=== PATIENT | female | born 1955 | race Two or more races ===

== ENCOUNTER 2018-09-13 21:50 | Emergency (ER) | payer SELFPAY ==
[~2018-09-13] VITALS: Ht 152.4 cm; Wt 54.4 kg
[2018-09-13] MEDS ORDERED: GABAPENTIN300 MG ORAL (22:02)
[2018-09-13] MEDS ORDERED: METFORMIN HCL500 M1 ORAL (22:02)
--- NOTE | 2018-09-13 22:03 | NUR ---
ED Nurse Note: Pt ambulated to ED from home with famiy, c/o 10/10 Headache pain and palpatations x 3 days. Pt is A&Ox4, Hx DM.
[2018-09-13 22:04] VITALS: BP 154/76
--- NOTE | 2018-09-13 22:10 | Emergency Room Report ---
History of Present Illness General Chief Complaint: Palpitations Source: Patient, Family Member Present Illness HPI This is a 63-year-old female with history of hypertension. She presents with chief complaint of left facial pain and palpitation. About 4 5 days ago she was diagnosed with left facial shingles. She was seen at [facility]. She was prescribed Wilkinson and gabapentin because she has postherpetic neuropathy. The rash is improving but she still get these lancing pain to her face. Now she getting more more palpitation episodes when the pain comes on. No shortness of breath also some chest tightness when the pain comes on. No nausea no vomiting. No exertional component. No diaphoresis. Allergies: Coded Allergies: No Known Allergies (Unverified , 09/13/18) Patient History Past Medical History: see triage record, old chart reviewed, DM Past Surgical History: none Pertinent Family History: none Social History: Denies: smoking Now: No Immunizations: other Reviewed Nursing Documentation: PMH: Agreed; PSxH: Agreed Nursing Documentation-PMH Past Medical History: No History, Except For Hx Diabetes: Yes Review of Systems Eye: Denies: eye pain, blurred vision ENT: Denies: ear pain, nose congestion, throat swelling Respiratory: Denies: cough, shortness of breath Cardiovascular: Reports: palpitations; Denies: chest pain Gastrointestinal: Denies: abdominal pain, diarrhea, nausea, vomiting Musculoskeletal: Denies: back pain, joint pain Skin: Denies: rash Neurological: Denies: headache, numbness Endocrine: Denies: increased thirst, increased urine Hematologic/Lymphatic: Denies: easy bruising All Other Systems: negative except mentioned in HPI Physical Exam Vital Signs Date Time Temp Pulse Resp B/P (MAP) Pulse Ox O2 Delivery O2 Flow Rate FiO2 09/13/18 21:58 99.0 106 21 154/76 (102) 100 Room Air Vitals with high blood pressure Sp02 EP Interpretation: reviewed, normal General Appearance: well appearing, no apparent distress, alert Head: normocephalic, atraumatic Eyes: bilateral eye PERRL, bilateral eye EOMI ENT: hearing grossly normal, normal pharynx, other - Skin discoloration from shingle on left side Neck: full range of motion, supple, no meningismus Respiratory: chest non-tender, lungs clear, normal breath sounds Cardiovascular #1: regular rate, rhythm, no murmur Gastrointestinal: normal bowel sounds, non tender, no mass, no organomegaly, no bruit, non-distended Musculoskeletal: back normal, gait/station normal, normal range of motion Psychiatric: anxious Medical Decision Making Diagnostic Impression: Primary Impression: Post herpetic neuralgia Additional Impressions: Palpitations Hyperglycemia due to type 2 diabetes mellitus ER Course Patient presents with palpitation and postherpetic neuralgia. She had a pain attack and was anxious and said her heartbeat was beating fast. Better after morphine. No evidence of ACS, PE, dissection to name a few. Will discharge home. She is currently taking Neurontin already. Will write for opiates. EKG Diagnostic Results Rate: tachycardiac Rhythm: NSR ST Segments: no acute changes Rhythm Strip Diag. Results EP Interpretation: yes Rate: 100 Rhythm: NSR, no PVC's, no ectopy Chest X-Ray Diagnostic Results Chest X-Ray Diagnostic Results : Chest X-Ray Ordered: Yes # of Views/Limited/Complete: 1 View Indication: Chest Pain EP Interpretation: Yes Interpretation: no consolidation, no effusion, no pneumothorax Impression: No acute disease Electronically Signed by: Keo Ames MD Last Vital Signs Date Time Temp Pulse Resp B/P (MAP) Pulse Ox O2 Delivery O2 Flow Rate FiO2 09/13/18 22:04 99.0 106 21 154/76 100 Room Air Status: improved Disposition: HOME, SELF-CARE Condition: Stable Scripts Hydrocodone/Acetaminophen 5-325* (HYDROCODONE/ACETAMINOPHEN 5-325*) 1 Each Tablet 1 TAB ORAL Q6H PRN for For Pain, #30 TAB 0 Refills Prov: Keo Ames MD 09/13/18 Patient Instructions: Palpitations Additional Instructions: Follow-up with your doctor in 7 days. Continue with Neurontin. Return if symptoms worsen. Keo Ames MD Sep 13, 2018 22:10
[2018-09-13] MEDS ORDERED: LORazepam Inj 2mg/ml 1ml IV ONE (22:15)
[2018-09-13 22:25] LABS: BASOPHILS % (AUTO) 1.1 % (0.0-2.0); EOSINOPHILS % (AUTO) 0.1 % (0.0-3.0); HEMATOCRIT 46.5 % (37.0-47.0); HEMOGLOBIN 15.6 G/DL (12.0-16.0); LYMPHOCYTES % (AUTO) 15.3 % (20.0-45.0); MEAN CORPUSCULAR VOLUME 81 FL (80-99); MONOCYTES % (AUTO) 6.6 % (1.0-10.0); NEUTROPHILS % (AUTO) 76.9 % (45.0-75.0); PLATELET COUNT 455 K/UL (150-450); RED BLOOD COUNT 5.76 M/UL (4.20-5.40); RED CELL DISTRIBUTION WIDTH 13.3 % (11.6-14.8); WHITE BLOOD COUNT 10.8 K/UL (4.8-10.8)
[2018-09-13 22:34] LABS: ANION GAP 11 mmol/L (5-15); BLOOD UREA NITROGEN 12 mg/dL (7-18); CALCIUM 9.4 MG/DL (8.5-10.1); CARBON DIOXIDE 25 MMOL/L (21-32); CHLORIDE 99 MMOL/L (98-107); CREATININE 0.9 MG/DL (0.55-1.30); POTASSIUM 4.1 MMOL/L (3.5-5.1); SODIUM 135 MMOL/L (136-145)
[2018-09-13] MEDS ORDERED: Insulin Human Regular 100units/ml 3ml IV ONE (22:45)
[2018-09-13] MEDS ORDERED: Morphine Sulfate 4mg/ml Inj (IV USE ONLY) IVP ONE (22:45)
[2018-09-13 22:47] LABS: ALANINE AMINOTRANSFERASE 7 U/L (12-78); ALBUMIN 3.9 G/DL (3.4-5.0); ALKALINE PHOSPHATASE 146 U/L (46-116); ASPARTATE AMINO TRANSFERASE 12 U/L (15-37); BILIRUBIN,TOTAL 0.5 MG/DL (0.2-1.0); CKMB 0.5 NG/ML (0.0-3.6); CREATINE KINASE 21 U/L (26-308)
--- NOTE | 2018-09-13 23:03 | Diagnostic Imaging Report ---
EXAM: XR Chest, 1 View CLINICAL HISTORY: CP TECHNIQUE: Frontal view of the chest. COMPARISON: No relevant prior studies available. FINDINGS: Lungs: Unremarkable. No consolidation. Pleural space: Unremarkable. No pneumothorax. Heart: Unremarkable. No cardiomegaly. Mediastinum: Unremarkable. Bones/joints: Unremarkable. IMPRESSION: Normal chest x-ray.
[2018-09-13] MEDS ORDERED: HYDROCODON-ACE1 EA15 ORAL (23:11)
--- NOTE | 2018-09-13 23:34 | NUR ---
ER DISCHARGE NOTE: Patient is cleared to be discharged per ERMD, pt is aox4, on room air, with stable vital signs. pt was given dc and prescription instructions, pt was able to verbalize understanding, pt id band and iv site removed without complications. pt is able to ambulate with steady gait. pt took all belongings. Pt accompanied by daughters, instructed to continue taking metformin daily and to follow up with PCP, verbalized understanding
[2018-09-13 23:35] VITALS: BP 136/80
== END 2018-09-13 23:35 | disposition home or self-care (01) ==
LOC: EMR 22:06
DX: B02.29 Other postherpetic nervous system involvement (principal); R00.2 Palpitations; E11.65 Type 2 diabetes mellitus with hyperglycemia; I10 Essential (primary) hypertension; R00.0 Tachycardia, unspecified
CPT/HCPCS: 36415; 71045; 80053; 82550; 82553; 84484; 85025; 93005; 96361; 96374; 96375; 99284; J1815; J2270; J2405

== ENCOUNTER 2018-09-18 14:13 | Inpatient (IN) | payer MEDICAID ==
[~2018-09-18] VITALS: Ht 154.9 cm; Wt 49.9 kg
[~2018-09-18 14:13] MED LIST: GABAPENTIN300 MG ORAL; HYDROCODON-ACE1 EA15 ORAL; METFORMIN HCL500 M1 ORAL
[2018-09-18 14:20] VITALS: BP 135/72
--- NOTE | 2018-09-18 14:20 | NUR ---
ED Nurse Note: pt walked in to ED due to headache for 3 weeks. rashes noted on left side of face. hx of shingles. pt seen by [facility] on 09/13/18 for same sx. per family member, pain meds not helping. AAO x4. respirations even and non-labored noted. breath sounds clear. on caridac monitor. will wait for the further order.
[2018-09-18 14:49] LABS: BASOPHILS % (AUTO) 0.8 % (0.0-2.0); EOSINOPHILS % (AUTO) 0.1 % (0.0-3.0); HEMOGLOBIN 16.4 G/DL (12.0-16.0); LYMPHOCYTES % (AUTO) 29.1 % (20.0-45.0); MEAN CORPUSCULAR VOLUME 81 FL (80-99); MONOCYTES % (AUTO) 6.1 % (1.0-10.0); NEUTROPHILS % (AUTO) 63.9 % (45.0-75.0); PLATELET COUNT 506 K/UL (150-450); RED BLOOD COUNT 6.08 M/UL (4.20-5.40); RED CELL DISTRIBUTION WIDTH 13.5 % (11.6-14.8); WHITE BLOOD COUNT 13.3 K/UL (4.8-10.8)
[2018-09-18 14:58] LABS: ANION GAP 13 mmol/L (5-15); BLOOD UREA NITROGEN 16 mg/dL (7-18); CARBON DIOXIDE 21 MMOL/L (21-32); CHLORIDE 100 MMOL/L (98-107); CREATININE 0.8 MG/DL (0.55-1.30); POTASSIUM 3.9 MMOL/L (3.5-5.1); SODIUM 134 MMOL/L (136-145)
[2018-09-18 15:12] LABS: ALANINE AMINOTRANSFERASE 6 U/L (12-78); ALBUMIN 3.9 G/DL (3.4-5.0); ALKALINE PHOSPHATASE 107 U/L (46-116); ASPARTATE AMINO TRANSFERASE 15 U/L (15-37); BILIRUBIN,TOTAL 0.8 MG/DL (0.2-1.0); CKMB 0.8 NG/ML (0.0-3.6); CREATINE KINASE 33 U/L (26-308)
[2018-09-18] MEDS ORDERED: Acyclovir 500 MG in D5W 110 ML IV ONE (15:15)
[2018-09-18] MEDS ORDERED: Morphine Sulfate 4mg/ml Inj (IV USE ONLY) IVP ONE ×2 (15:15→17:15)
--- NOTE | 2018-09-18 15:18 | Diagnostic Imaging Report ---
Indication: Chest pain Comparison: 09/13/2018 A single view chest radiograph was obtained. Findings: Cardiomediastinal appearance is within normal limits for age. The lungs are clear. Pulmonary vascularity is appropriate. The diaphragmatic contour is smooth and costophrenic angles are sharp. No pleural effusions are identified. The bones are unremarkable. Impression: No acute findings
[2018-09-18 15:20] VITALS: BP 110/61
--- NOTE | 2018-09-18 15:25 | Diagnostic Imaging Report ---
Indication: Headache Technique: Contiguous 5 mm thick transaxial imaging of the head obtained in a Siemens Sensation [address] scanner. Soft tissue and bone windows generated. Automatic Exposure Control was utilized. Total Dose length Product (DLP): 1481.[address] Dose Index Volume (CTDIvol): 70.38 mGy Comparison: none Findings: The size and configuration of the cortical sulci, basal cisterns, and ventricles are within normal limits for age. There is no mass effect, midline shift, or edema identified. There is no evidence of acute hemorrhage or abnormal intra-axial or extra-axial fluid collections. The bones and soft tissues are unremarkable. Impression: No mass effect, edema or acute bleed. The CT scanner at [facility] is accredited by the [employer] and the scans are performed using dose optimization techniques as appropriate to a performed exam including Automatic Exposure control.
--- NOTE | 2018-09-18 15:44 | NUR ---
ED Nurse Note: pt went to MRI by wheelchair.
[2018-09-18 16:49] VITALS: BP 119/64
--- NOTE | 2018-09-18 16:50 | NUR ---
ED Nurse Note: pt came back from MRI. c/o ammy, 12/18. RN notified Dr. Gee.
--- NOTE | 2018-09-18 17:00 | Diagnostic Imaging Report ---
Indication: Left eye pain Technique: The orbit or imaged in a 1.5 Alba magnet. Multiplanar T1 and T2 fast spin-echo with fat saturation performed. Axial T2 FLAIR, diffusion brain sequences also performed. Comparison: None Nongadolinium-enhanced MRI of the orbits performed showing normal signal with regard to the retrobulbar fat. There is good symmetry of the optic nerves which appear normal to the chiasm. The globes are unremarkable. There are no abnormal fluid collections identified. There is no evidence of retrobulbar hemorrhage or proptosis. Generalized brain sequences show no diffusion restriction, mass effect or edema. IMPRESSION: Negative nonenhanced MRI of the orbits.
--- NOTE | 2018-09-18 17:01 | Emergency Room Report ---
History of Present Illness General Chief Complaint: Headache Source: Patient, Family Member, Medical Record Present Illness HPI This patient had been previously diagnosed with herpes zoster of her face. This had initially been diagnosed 10 days ago at another hospital. She has been on acyclovir, gabapentin and norco. She was seen 5 days ago and diagnosed with postherpetic neuralgia. She has had ongoing very sharp stabbing electric- like pain in her left head, eye, and face. There has been no new symptoms since she was seen previously 5 days ago. She denies nausea or vomiting. She denies fever or chills. She has no new pain. She has no other complaints. Allergies: Coded Allergies: No Known Allergies (Unverified , 09/13/18) Patient History Past Medical History: see triage record, DM Social History: Denies: smoking, alcohol use, drug use Reviewed Nursing Documentation: PMH: Agreed; PSxH: Agreed Nursing Documentation-PMH Past Medical History: No History, Except For Hx Diabetes: Yes Review of Systems All Other Systems: negative except mentioned in HPI Physical Exam Vital Signs Date Time Temp Pulse Resp B/P (MAP) Pulse Ox O2 Delivery O2 Flow Rate FiO2 09/18/18 14:20 99.9 116 19 135/72 100 Room Air Sp02 EP Interpretation: reviewed, normal General Appearance: no apparent distress, alert, GCS 15, non-toxic Head: normocephalic, atraumatic, other - See below in skin exam Eyes: left eye other - Conjunctival erythema ENT: hearing grossly normal, normal pharynx, no angioedema, normal voice Neck: full range of motion, supple/symm/no masses Respiratory: chest non-tender, lungs clear, normal breath sounds, no respiratory distress, no retraction, no accessory muscle use, speaking full sentences Cardiovascular #1: regular rate, rhythm, no edema Gastrointestinal: normal bowel sounds, non tender, soft, non-distended, no guarding, no rebound Rectal: deferred Musculoskeletal: back normal, normal range of motion, non-tender Neurologic: alert, oriented x3, responsive, motor strength/tone normal, sensory intact, speech normal Psychiatric: judgement/insight normal, memory normal, mood/affect normal, no suicidal/homicidal ideation Skin: other - Darkened lesions on L. forehead to include L. eyelids and conjunctival erythema. No vesicles. Medical Decision Making Diagnostic Impression: Primary Impression: Post herpetic neuralgia Additional Impression: Herpes zoster ophthalmicus of left eye ER Course This patient has ongoing postherpetic neuralgia of the left forehead and findings on exam consistent with herpes zoster ophthalmicus. Her pain is out of control. The patient was given IV acyclovir. I did obtain a CT of the head given the severe head pain and an MRI of the orbit. These were all unremarkable. Laboratory work-up was also unremarkable. This patient is admitted for further pain management for uncontrolled pain and monitoring for the herpes zoster ophthalmicus of her left eye. Laboratory Tests Test 09/18/18 14:30 White Blood Count 13.3 K/UL (4.8-10.8) H Red Blood Count 6.08 M/UL (4.20-5.40) H Hemoglobin 16.4 G/DL (12.0-16.0) H Hematocrit 49.0 % (37.0-47.0) H Mean Corpuscular Volume 81 FL (80-99) Mean Corpuscular Hemoglobin 27.0 PG (27.0-31.0) Mean Corpuscular Hemoglobin Concent 33.6 G/DL (32.0-36.0) Red Cell Distribution Width 13.5 % (11.6-14.8) Platelet Count 506 K/UL (150-450) H Mean Platelet Volume 5.8 FL (6.5-10.1) L Neutrophils (%) (Auto) 63.9 % (45.0-75.0) Lymphocytes (%) (Auto) 29.1 % (20.0-45.0) Monocytes (%) (Auto) 6.1 % (1.0-10.0) Eosinophils (%) (Auto) 0.1 % (0.0-3.0) Basophils (%) (Auto) 0.8 % (0.0-2.0) Sodium Level 134 MMOL/L (136-145) L Potassium Level 3.9 MMOL/L (3.5-5.1) Chloride Level 100 MMOL/L (98-107) Carbon Dioxide Level 21 MMOL/L (21-32) Anion Gap 13 mmol/L (5-15) Blood Urea Nitrogen 16 mg/dL (7-18) Creatinine 0.8 MG/DL (0.55-1.30) Estimate Glomerular Filtration Rate > 60 mL/min (>60) Glucose Level 302 MG/DL (74-106) H Calcium Level 10.0 MG/DL (8.5-10.1) Total Bilirubin 0.8 MG/DL (0.2-1.0) Aspartate Amino Transferase (AST) 15 U/L (15-37) Alanine Aminotransferase (ALT) 6 U/L (12-78) L Alkaline Phosphatase 107 U/L (46-116) Total Creatine Kinase 33 U/L (26-308) Creatine Kinase MB 0.8 NG/ML (0.0-3.6) Creatine Kinase MB Relative Index 2.4 Troponin I 0.000 ng/mL (0.000-0.056) Total Protein 7.8 G/DL (6.4-8.2) Albumin 3.9 G/DL (3.4-5.0) Globulin 3.9 g/dL Albumin/Globulin Ratio 1.0 (1.0-2.7) EKG Diagnostic Results Rate: tachycardiac Rhythm: other - S.tachycardia ST Segments: no acute changes Rhythm Strip Diag. Results EP Interpretation: yes Rate: 100's Rhythm: no PVC's, no ectopy, other - S.tachycardia Chest X-Ray Diagnostic Results Chest X-Ray Diagnostic Results : Chest X-Ray Ordered: Yes Indication: Other EP Interpretation: Yes Interpretation: no consolidation, no effusion, no pneumothorax, no acute cardiopulmonary disease Impression: No acute disease Electronically Signed by: Naina Gee DO CT/MRI/US Diagnostic Results CT/MRI/US Diagnostic Results : Imaging Test Ordered: CT head, MRI orbits Impression CT head: No acute findings. Specifically no intracranial bleed, mass effect or edema. See official report. MRI orbits: No acute findings. See official report in the electronic medical record. Last Vital Signs Date Time Temp Pulse Resp B/P (MAP) Pulse Ox O2 Delivery O2 Flow Rate FiO2 09/18/18 16:49 98.7 107 17 119/64 99 Room Air Disposition: ADMITTED INPATIENT Condition: Stable Referrals: NOT CHOSEN IPA/,REFERRING (PCP) Naina Gee DO Sep 18, 2018 17:01
--- NOTE | 2018-09-18 18:04 | NUR ---
ED Nurse Note: RN attempted to give a report. no assigned nurse yet. will call back in 15 mins as requested.
--- NOTE | 2018-09-18 18:20 | NUR ---
ED Nurse Note: urine sample sent
[2018-09-18] MEDS ORDERED: Morphine Sulfate 2mg/ml Inj(IV/IM USE ONLY) IVP PRN ×2 (18:30→22:30)
[2018-09-18] MEDS ORDERED: LORazepam Inj 2mg/ml 1ml IV PRN (18:30)
--- NOTE | 2018-09-18 18:30 | NUR ---
ED Nurse Note: MS nurse wants cover for BS 302. RN notified Dr. Gee. will wait for the order.
[2018-09-18 18:35] VITALS: BP 132/78
--- NOTE | 2018-09-18 18:42 | NUR ---
ED Nurse Note: Reports given to FLAKITO Pierce.
[2018-09-18] MEDS ORDERED: metFORMIN 500mg tab ORAL ONE (18:45)
--- NOTE | 2018-09-18 18:53 | NUR ---
NURSE NOTES: Received pt from ACCOUNTING MACHINE MECHANIC ARSENIO. Pt is alert and orient x4. pt is in RA, no SOB or acute respiratory distress noted. pt has intact iv access RAC 20G SL. family member are with pt in the room. Dr DOOLEY is aware about admission and put admission orders.V/S stable. all needs attended, bed is locked and is in the lowest position. call light within easy reach. will continue to monitor. will give report to the next shift to do admission process and skin check. will continue to monitor.
--- NOTE | 2018-09-18 19:23 | NUR ---
HAND-OFF: Report given to REUBEN FRAGA .
--- NOTE | 2018-09-18 19:30 | NUR ---
NURSE NOTES: Received report from FLAKITO Pierce. Patient in bed, awake and alert x4. Patient is in room air with no signs of respiratory distress. Family at bedside. IV intact. Bed in lowest position with call light in reach. Will continue to monitor.
[2018-09-18 20:00] VITALS: BP 131/74
[2018-09-18] MEDS: Heparin 5000 units/ml inj SUBQ SCH (20:48)
[2018-09-18] MEDS: NovoLOG Insulin Flexpen SUBQ SCH (20:52)
[2018-09-18] MEDS ORDERED: Zolpidem 5mg tab ORAL PRN (21:00)
[2018-09-18 21:17] LABS: APPEARANCE,URINE CLEAR; BILIRUBIN, URINE NEGATIVE (NEGATIVE); COLOR,URINE PALE YELLOW; GLUCOSE, URINE (UA) 4+ (NEGATIVE); KETONES,URINE 3+ (NEGATIVE); LEUKOCYTE ESTERASE ,URINE NEGATIVE (NEGATIVE); NITRITE,URINE NEGATIVE (NEGATIVE); PH,URINE 7 (4.5-8.0); PROTEIN,URINE NEGATIVE (NEGATIVE); UROBILINOGEN,URINE NORMAL MG/DL (0.0-1.0)
--- NOTE | 2018-09-18 23:00 | NUR ---
NURSE NOTES: Offered to apply dressing over the left eye area. Explained risks and benefits, patient understands but refuses.
[2018-09-19] VITALS: BP 131/74
[2018-09-19 04:00] VITALS: BP 121/72
[2018-09-19] MEDS: NovoLOG Insulin Flexpen SUBQ SCH ×4 (06:29→21:17)
[2018-09-19 06:32] LABS: BASOPHILS % (AUTO) 0.9 % (0.0-2.0); EOSINOPHILS % (AUTO) 0.2 % (0.0-3.0); HEMATOCRIT 42.6 % (37.0-47.0); HEMOGLOBIN 14.2 G/DL (12.0-16.0); LYMPHOCYTES % (AUTO) 21.8 % (20.0-45.0); MEAN CORPUSCULAR VOLUME 82 FL (80-99); MONOCYTES % (AUTO) 8.8 % (1.0-10.0); NEUTROPHILS % (AUTO) 68.2 % (45.0-75.0); PLATELET COUNT 383 K/UL (150-450); RED BLOOD COUNT 5.21 M/UL (4.20-5.40); RED CELL DISTRIBUTION WIDTH 14.2 % (11.6-14.8); WHITE BLOOD COUNT 8.7 K/UL (4.8-10.8)
[2018-09-19 06:51] LABS: ALANINE AMINOTRANSFERASE < 6 U/L (12-78); ALBUMIN 3.4 G/DL (3.4-5.0); ALBUMIN/GLOBULIN RATIO 1.2 (1.0-2.7); ALKALINE PHOSPHATASE 86 U/L (46-116); ANION GAP 8 mmol/L (5-15); ASPARTATE AMINO TRANSFERASE 15 U/L (15-37); BILIRUBIN,TOTAL 0.4 MG/DL (0.2-1.0); BLOOD UREA NITROGEN 15 mg/dL (7-18); CALCIUM 8.6 MG/DL (8.5-10.1); CARBON DIOXIDE 26 MMOL/L (21-32); CHLORIDE 102 MMOL/L (98-107); CHOLESTEROL 125 MG/DL (< 200); CREATININE 0.7 MG/DL (0.55-1.30); HDL CHOLESTEROL 43 MG/DL (40-60); POTASSIUM 3.5 MMOL/L (3.5-5.1); SODIUM 136 MMOL/L (136-145); TRIGLYCERIDES 217 MG/DL (30-150)
--- NOTE | 2018-09-19 07:31 | NUR ---
HAND-OFF: Report given to FLAKTIO Mansfield.
--- NOTE | 2018-09-19 07:44 | NUR ---
NURSE NOTES: Patient received in stable condition, breathing unlabored on room air. Daughter by the bedside. Patient complains of pain despite having analgesic 2 hours ago. MD made aware, awaiting response for possible increased dose. IV site on right arm patent and intact. Bed locked in lowest position, call light placed within reach. Will continue to monitor.
[2018-09-19 08:00] VITALS: BP 130/77
[2018-09-19] MEDS: Heparin 5000 units/ml inj SUBQ SCH ×2 (08:24→20:54)
[2018-09-19 12:00] VITALS: BP 131/78
--- NOTE | 2018-09-19 12:32 | Consultation ---
History of Present Illness General Date patient seen: Sep 19, 2018 Chief Complaint: Headache Present Illness HPI 63 year old female with hx of DM with recent herpes zoster of her face, on acyclovir, presented to ER with severe ongoing very sharp stabbing electric- like pain in her left head, eye, and face. . She denies nausea or vomiting. She denies fever or chills. She has no new pain. she is admitted for pain management. Allergies: Coded Allergies: No Known Allergies (Unverified , 09/13/18) Medication History Scheduled Gabapentin* (Gabapentin*), 300 MG ORAL THREE TIMES A DAY, (Reported) Metformin Hcl* (Metformin Hcl*), 500 MG ORAL TWICE A DAY, (Reported) Scheduled PRN Hydrocodone/Acetaminophen 5-325* (Hydrocodone/Acetaminophen 5-325*), 1 TAB ORAL Q6H PRN for For Pain Patient History Healthcare decision maker Resuscitation status Advanced Directive on File Past Medical/Surgical History Past Medical/Surgical History: (1) Herpes zoster ophthalmicus of left eye Review of Systems All Other Systems: negative except mentioned in HPI Physical Exam General Appearance: WD/WN Lines, tubes and drains: peripheral, central line HEENT: normocephalic, atraumatic Neck: non-tender, normal alignment, limited range of motion Respiratory/Chest: chest wall non-tender, lungs clear, normal breath sounds Abdomen: normal bowel sounds, non tender Genitourinary/Rectal: normal genital exam Extremities: normal range of motion Neurologic: tire classifier II-XII grossly normal Last 24 Hour Vital Signs Date Time Temp Pulse Resp B/P (MAP) Pulse Ox O2 Delivery O2 Flow Rate FiO2 09/19/18 12:00 97.5 103 18 131/78 (95) 97 09/19/18 09:00 Room Air 09/19/18 08:00 98.5 111 18 130/77 (94) 98 09/19/18 04:00 98.0 115 18 121/72 (88) 98 09/19/18 00:00 97.5 92 18 131/74 (93) 98 09/18/18 20:00 97.8 103 19 131/74 (93) 98 09/18/18 19:30 Room Air 09/18/18 18:43 98.1 80 18 132/78 100 Room Air 09/18/18 18:35 98.1 80 18 132/78 100 Room Air 09/18/18 16:49 98.7 107 17 119/64 99 Room Air 09/18/18 15:20 97 16 110/61 99 Room Air 09/18/18 14:20 99.9 116 19 135/72 (93) 100 Room Air 09/18/18 14:20 99.9 116 19 135/72 100 Room Air Intake and Output 09/18/18 09/19/18 19:00 07:00 Intake Total 110 ml Balance 110 ml Intake Oral 0 ml IV Total 110 ml # Voids 2 Laboratory Tests Test 09/18/18 14:30 09/18/18 18:18 09/19/18 05:55 White Blood Count 13.3 K/UL (4.8-10.8) H 8.7 K/UL (4.8-10.8) Red Blood Count 6.08 M/UL (4.20-5.40) H 5.21 M/UL (4.20-5.40) Hemoglobin 16.4 G/DL (12.0-16.0) H 14.2 G/DL (12.0-16.0) Hematocrit 49.0 % (37.0-47.0) H 42.6 % (37.0-47.0) Mean Corpuscular Volume 81 FL (80-99) 82 FL (80-99) Mean Corpuscular Hemoglobin 27.0 PG (27.0-31.0) 27.2 PG (27.0-31.0) Mean Corpuscular Hemoglobin Concent 33.6 G/DL (32.0-36.0) 33.3 G/DL (32.0-36.0) Red Cell Distribution Width 13.5 % (11.6-14.8) 14.2 % (11.6-14.8) Platelet Count 506 K/UL (150-450) H 383 K/UL (150-450) Mean Platelet Volume 5.8 FL (6.5-10.1) L 5.7 FL (6.5-10.1) L Neutrophils (%) (Auto) 63.9 % (45.0-75.0) 68.2 % (45.0-75.0) Lymphocytes (%) (Auto) 29.1 % (20.0-45.0) 21.8 % (20.0-45.0) Monocytes (%) (Auto) 6.1 % (1.0-10.0) 8.8 % (1.0-10.0) Eosinophils (%) (Auto) 0.1 % (0.0-3.0) 0.2 % (0.0-3.0) Basophils (%) (Auto) 0.8 % (0.0-2.0) 0.9 % (0.0-2.0) Sodium Level 134 MMOL/L (136-145) L 136 MMOL/L (136-145) Potassium Level 3.9 MMOL/L (3.5-5.1) 3.5 MMOL/L (3.5-5.1) Chloride Level 100 MMOL/L (98-107) 102 MMOL/L (98-107) Carbon Dioxide Level 21 MMOL/L (21-32) 26 MMOL/L (21-32) Anion Gap 13 mmol/L (5-15) 8 mmol/L (5-15) Blood Urea Nitrogen 16 mg/dL (7-18) 15 mg/dL (7-18) Creatinine 0.8 MG/DL (0.55-1.30) 0.7 MG/DL (0.55-1.30) Estimat Glomerular Filtration Rate > 60 mL/min (>60) > 60 mL/min (>60) Glucose Level 302 MG/DL (74-106) H 312 MG/DL (74-106) H Calcium Level 10.0 MG/DL (8.5-10.1) 8.6 MG/DL (8.5-10.1) Total Bilirubin 0.8 MG/DL (0.2-1.0) 0.4 MG/DL (0.2-1.0) Aspartate Amino Transf (AST/SGOT) 15 U/L (15-37) 15 U/L (15-37) Alanine Aminotransferase (ALT/SGPT) 6 U/L (12-78) L < 6 U/L (12-78) L Alkaline Phosphatase 107 U/L (46-116) 86 U/L (46-116) Total Creatine Kinase 33 U/L (26-308) Creatine Kinase MB 0.8 NG/ML (0.0-3.6) Creatine Kinase MB Relative Index 2.4 Troponin I 0.000 ng/mL (0.000-0.056) Total Protein 7.8 G/DL (6.4-8.2) 6.3 G/DL (6.4-8.2) L Albumin 3.9 G/DL (3.4-5.0) 3.4 G/DL (3.4-5.0) Globulin 3.9 g/dL 2.9 g/dL Albumin/Globulin Ratio 1.0 (1.0-2.7) 1.2 (1.0-2.7) Urine Color Pale yellow Urine Appearance Clear Urine pH 7 (4.5-8.0) Urine Specific [place] 1.005 (1.005-1.035) Urine Protein Negative (NEGATIVE) Urine Glucose (UA) 4+ (NEGATIVE) H Urine Ketones 3+ (NEGATIVE) H Urine Blood Negative (NEGATIVE) Urine Nitrite Negative (NEGATIVE) Urine Bilirubin Negative (NEGATIVE) Urine Urobilinogen Normal MG/DL (0.0-1.0) Urine Leukocyte Esterase Negative (NEGATIVE) Urine Opiates Screen Positive (NEGATIVE) H Urine Barbiturates Screen Negative (NEGATIVE) Phencyclidine (PCP) Screen Negative (NEGATIVE) Urine Amphetamines Screen Negative (NEGATIVE) Urine Benzodiazepines Screen Negative (NEGATIVE) Urine Cocaine Screen Negative (NEGATIVE) Urine Marijuana (THC) Screen Negative (NEGATIVE) Triglycerides Level 217 MG/DL (30-150) H Cholesterol Level 125 MG/DL (< 200) LDL Cholesterol 42 mg/dL (<100) HDL Cholesterol 43 MG/DL (40-60) Cholesterol/HDL Ratio 2.9 (3.3-4.4) L Height (Feet): 5 Height (Inches): 1.00 Weight (Pounds): 110 Medications Current Medications Medications (Trade) Dose Ordered Sig/Maryanne Route PRN Reason Start Time Stop Time Status Last Admin Dose Admin Acetaminophen (Tylenol) 650 mg Q4H PRN ORAL T>100.5 09/18/18 18:30 10/18/18 18:29 Acetaminophen/ Hydrocodone Bitart ([place] 5/325) 1 tab Q6H PRN ORAL Moderate Pain (Pain Scale 4-6) 09/18/18 18:30 09/25/18 18:29 Dextrose (Dextrose 50%) 25 ml Q30M PRN IV Hypoglycemia 09/18/18 18:30 10/18/18 18:29 Dextrose (Dextrose 50%) 50 ml Q30M PRN IV Hypoglycemia 09/18/18 18:30 10/18/18 18:29 Gabapentin (Neurontin) 300 mg Q8HR ORAL 09/18/18 22:00 10/18/18 21:59 09/19/18 06:23 Heparin Sodium (Porcine) (Heparin 5000 units/ml) 5,000 units EVERY 12 HOURS SUBQ 09/18/18 21:00 10/18/18 20:59 09/19/18 08:24 Hydromorphone HCl (Dilaudid) 2 mg Q4H PRN IVP Severe Breakthru Pain (>7) 09/19/18 08:15 09/26/18 08:14 09/19/18 08:18 Insulin Aspart (NovoLOG) BEFORE MEALS AND HS SUBQ 09/18/18 21:00 10/18/18 20:59 09/19/18 11:35 Lorazepam (Ativan 2mg/ml 1ml) 0.5 mg Q4H PRN IV For Anxiety 09/18/18 18:30 09/25/18 18:29 09/19/18 09:24 Ondansetron HCl (Zofran) 4 mg Q6H PRN IVP Nausea & Vomiting 09/18/18 18:30 10/18/18 18:29 09/19/18 06:24 Polyethylene Glycol (Miralax) 17 gm HSPRN PRN ORAL Constipation 09/18/18 21:00 10/18/18 20:59 Zolpidem Tartrate (Ambien) 5 mg HSPRN PRN ORAL Insomnia 09/18/18 21:00 09/25/18 20:59 Assessment/Plan Problem List: (1) Post herpetic neuralgia ICD Codes: B02.29 - Other postherpetic nervous system involvement SNOMED: 0364385 (2) Herpes zoster ophthalmicus of left eye ICD Codes: B02.30 - Zoster ocular disease, unspecified SNOMED: 10566647 Assessment/Plan: pain management add methadone for neuropathic pain Jabier Adams MD Sep 19, 2018 12:32
--- NOTE | 2018-09-19 14:33 | NUR ---
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 HERPES ZOSTER OPHTALMICUS OF LEFT EYE VS: BP 135/72, P 116, T 99.9, RR 19, SpO2 100 WBC 13.3, RBC 6.08, H&H 16.4/49.0, Na 134, ALT 6, UR KETONES 3+ IS:METFORMIN 500mg NS x1L IV MORPHINE SULFATE 4mg IVP ACYCLOVIR 110ml IV ADMITTED TO MED/SURG DCP: RETURN HOME
--- NOTE | 2018-09-19 15:55 | Cardiology Report ---
APPROVED REPORT EKG Measurement Heart [id number] Sinus tachycardia Otherwise normal ECG
[2018-09-19 16:00] VITALS: BP 142/86
--- NOTE | 2018-09-19 17:25 | History & Physical ---
History and Physical History & Physicial Chau Godfrey MD Sep 19, 2018 17:25
--- NOTE | 2018-09-19 19:00 | History and Physical Report ---
DATE OF ADMISSION: 09/18/2018 CHIEF COMPLAINT: Left-sided facial pain. HISTORY OF PRESENT ILLNESS: This is a 63-year-old female with past medical history significant for diabetes type 2 with history of recent herpes zoster of the left-sided face, on acyclovir, completed has been presented to the emergency room complaining about sharp stabbing electrical pain on the left side of her face. The patient denies any nausea or vomiting. Denies any fever or chills. Denies any loss of consciousness. Denies any fall or head trauma. Denies any seizure activity. The patient has been having left ophthalmic dermatome herpes zoster infection. It has been going on for past 4 weeks and still complaining about pain progressively worsening. Subsequently after initial evaluation in the emergency room, the patient was admitted to the hospital with severe left-sided facial pain, most likely secondary to the postherpetic neuralgia. PAST MEDICAL HISTORY/PAST SURGICAL HISTORY: As above, history of diabetes type 2 with history of left herpes zoster ophthalmicus. MEDICATIONS AT HOME: She is on gabapentin and metformin. ALLERGIES: No known drug allergies. SOCIAL HISTORY: No smoking, alcohol, or drugs. FAMILY HISTORY: Noncontributory. REVIEW OF SYSTEMS: Mostly as above. PHYSICAL EXAMINATION: VITAL SIGNS: On admission temperature 99, pulse of 116, respirations 19, blood pressure 135/72. GENERAL: The patient awake, responsive, not in acute distress. HEAD AND NECK: Pupils are equal and reactive to light. Extraocular movements intact. Left-sided facial area has vesicular dry rashes with the scab has been removed, not extended to the tip of the nose. Left eye, there is no erythema on the cornea. Neck was supple. No JVD. LUNGS: Good air entry. No wheeze or rales. HEART: S1, S2. Regular rhythm. No gallops. ABDOMEN: Soft, nondistended, nontender. Positive bowel sounds. EXTREMITIES: No cyanosis, clubbing, edema. NEUROLOGIC: Cranial nerves II through XII grossly intact. Motor is 5/5 in all extremities. Gait is intact. RECTAL/GENITOURINARY: Refused and deferred. PSYCHIATRIC: Mood and affect is intact. LABORATORY DATA: On admission from the ER, WBC of 13, hemoglobin 16, hematocrit 49, platelets 506. Sodium 134, potassium 3.9, chloride 100, bicarb 21, BUN 16, creatinine 0.8, glucose is 302. Troponin 0.00. Urine drug screen positive for opioids, otherwise negative. Urinalysis, +4 glucose, +3 ketones, no nitrites, no leukocytes. The patient had a CT of the head. No mass effect, edema, or acute bleeding. MRI of the facial area negative for nonenhanced MRI of the orbital. Chest x-ray, no acute findings. ASSESSMENT: 1. Uncontrolled diabetes, most likely secondary to the recent infection. 2. Postherpetic neuralgia. 3. Herpes zoster ophthalmicus of the left eye. PLAN: We will continue on the pain medication including methadone. Follow up Dr. Adams's recommendation. Resume home medication. Accu-Chek with sliding scale. Code status is Full Code. DVT prophylaxis, heparin subcutaneous. Chau Godfrey M.D. DR: FELIZ JOB#: [id number] CC:
--- NOTE | 2018-09-19 19:35 | NUR ---
HAND-OFF: Report given to Esperanza FRAGA.
[2018-09-19 20:00] VITALS: BP 134/72
--- NOTE | 2018-09-19 20:00 | NUR ---
NURSE NOTES: PATIENT IN BED. ADM DX OF HERPES ZOSTER ON L EYE. ON RA, NO SOB, NO ACUTE DISTRESS. IV INTACT, PATENT ON RAC, SALINE LOCK. DARKEN LESION ON L EYE AND L FOREHEAD. BED IN LOWEST POSITION, LOCKED, ALARMS ON. CALL LIGHT IN REACH. FAMILY BY BEDSIDE.
[2018-09-20] VITALS: BP 153/84
--- NOTE | 2018-09-20 03:08 | NUR ---
HAND-OFF: Report given to Toney FRAGA.
--- NOTE | 2018-09-20 03:15 | NUR ---
NURSE NOTES: Patient received to continue care. Pt resting in bed. On room air. IV on R AC intact and asymptomatic. Dark lesion on L eye and L forehead. No blister noted. No acute distress noted at this time. Daughter is at bedside. Bed locked, alarm on, lowest position, call light within reach. Will continue to monitor.
[2018-09-20 04:00] VITALS: BP 116/69
[2018-09-20] MEDS: NovoLOG Insulin Flexpen SUBQ SCH ×4 (05:50→21:00)
--- NOTE | 2018-09-20 07:25 | NUR ---
NURSE NOTES: Received pt from FLAKITO Beyer. Pt resting in bed. AO x4, [place] Islander speaking. Daughter at the bedside. On room air. IV on R AC intact and patent, with saline lock. Dark lesion on L eye and forehead. No acute distress noted. Bed in the lowest position, locked, and call light within reach. Will continue to monitor
--- NOTE | 2018-09-20 07:28 | NUR ---
HAND-OFF: Report given to Sam/FLAKITO Weber.
--- NOTE | 2018-09-20 07:31 | Pulmonology Progress Note ---
Assessment/Plan Problems: (1) Post herpetic neuralgia (2) Herpes zoster ophthalmicus of left eye Assessment/Plan increase methadone and gabapentin, decrease dilaudid Subjective ROS Limited/Unobtainable: No Interval Events: gapapenitn and Mehtadone seem to be helping her Allergies: Coded Allergies: No Known Allergies (Unverified , 09/13/18) Objective Last 24 Hour Vital Signs Date Time Temp Pulse Resp B/P (MAP) Pulse Ox O2 Delivery O2 Flow Rate FiO2 09/20/18 04:00 97.3 97 19 116/69 (85) 97 09/20/18 00:00 98.6 111 19 153/84 (107) 96 09/19/18 21:00 Room Air 09/19/18 20:00 97.1 96 19 134/72 (92) 96 09/19/18 16:00 98.5 118 19 142/86 (104) 97 09/19/18 12:00 97.5 103 18 131/78 (95) 97 09/19/18 09:00 Room Air 09/19/18 08:00 98.5 111 18 130/77 (94) 98 Intake and Output 09/19/18 09/20/18 19:00 07:00 Intake Total 60 ml Balance 60 ml Intake Oral 60 ml # Voids 3 1 General Appearance: WD/WN HEENT: normocephalic, atraumatic Respiratory/Chest: chest wall non-tender, lungs clear Breasts: no masses Cardiovascular: normal peripheral pulses Abdomen: normal bowel sounds, no organomegaly Extremities: no cyanosis Skin: no rash Current Medications Medications (Trade) Dose Ordered Sig/Maryanne Route PRN Reason Start Time Stop Time Status Last Admin Dose Admin Acetaminophen (Tylenol) 650 mg Q4H PRN ORAL T>100.5 09/18/18 18:30 10/18/18 18:29 Acetaminophen/ Hydrocodone Bitart ([place] 5/325) 1 tab Q6H PRN ORAL Moderate Pain (Pain Scale 4-6) 09/18/18 18:30 09/25/18 18:29 Dextrose (Dextrose 50%) 25 ml Q30M PRN IV Hypoglycemia 09/18/18 18:30 10/18/18 18:29 Dextrose (Dextrose 50%) 50 ml Q30M PRN IV Hypoglycemia 09/18/18 18:30 10/18/18 18:29 Gabapentin (Neurontin) 300 mg Q8HR ORAL 09/18/18 22:00 10/18/18 21:59 09/20/18 05:49 Heparin Sodium (Porcine) (Heparin 5000 units/ml) 5,000 units EVERY 12 HOURS SUBQ 09/18/18 21:00 10/18/18 20:59 09/19/18 20:54 Hydromorphone HCl (Dilaudid) 2 mg Q4H PRN IVP Severe Breakthru Pain (>7) 09/19/18 08:15 09/26/18 08:14 09/20/18 03:49 Insulin Aspart (NovoLOG) BEFORE MEALS AND HS SUBQ 09/18/18 21:00 10/18/18 20:59 09/20/18 05:50 Lorazepam (Ativan 2mg/ml 1ml) 0.5 mg Q4H PRN IV For Anxiety 09/18/18 18:30 09/25/18 18:29 09/19/18 09:24 Methadone HCl (Methadone HCl) 5 mg Q6H PRN ORAL Severe Pain (Pain Scale 7-10) 09/19/18 12:45 09/26/18 12:44 09/20/18 05:05 Ondansetron HCl (Zofran) 4 mg Q6H PRN IVP Nausea & Vomiting 09/18/18 18:30 10/18/18 18:29 09/19/18 06:24 Polyethylene Glycol (Miralax) 17 gm HSPRN PRN ORAL Constipation 09/18/18 21:00 10/18/18 20:59 Zolpidem Tartrate (Ambien) 5 mg HSPRN PRN ORAL Insomnia 09/18/18 21:00 09/25/18 20:59 09/19/18 21:57 Jabier Adams MD Sep 20, 2018 07:31
[2018-09-20 08:00] VITALS: BP 156/84
[2018-09-20] MEDS: HYDROmorphone 1mg/ml Carpuject IVP PRN ×3 (08:17→21:21)
[2018-09-20] MEDS: Heparin 5000 units/ml inj SUBQ SCH ×2 (08:24→21:26)
--- NOTE | 2018-09-20 10:34 | NUR ---
CASE MANAGEMENT: REVIEW 09/20/2018 SI:HERPES ZOSTER OPHTHALMICUS. T 97.3 HR 111 RR 19 B/P 153/84 SATS 96% ON RA NO LABS TODAY IS:INSULIN ASPART SUBQ AC/HS GABAPENTIN PO Q8H MED/SURG STATUS PLAN OF CARE: PAIN MANAGEMENT CONSULT
[2018-09-20 12:00] VITALS: BP 152/85
--- NOTE | 2018-09-20 14:45 | Internal Med Progress Note ---
Subjective Physician Name Chau Godfrey Attending Physician Chau Godfrey MD Current Medications Medications (Trade) Dose Ordered Sig/Maryanne Route PRN Reason Start Time Stop Time Status Last Admin Dose Admin Acetaminophen (Tylenol) 650 mg Q4H PRN ORAL T>100.5 09/18/18 18:30 10/18/18 18:29 Acetaminophen/ Hydrocodone Bitart ([place] 5/325) 1 tab Q6H PRN ORAL Moderate Pain (Pain Scale 4-6) 09/18/18 18:30 09/25/18 18:29 Dextrose (Dextrose 50%) 25 ml Q30M PRN IV Hypoglycemia 09/18/18 18:30 10/18/18 18:29 Dextrose (Dextrose 50%) 50 ml Q30M PRN IV Hypoglycemia 09/18/18 18:30 10/18/18 18:29 Gabapentin (Neurontin) 600 mg Q8HR ORAL 09/20/18 14:00 10/18/18 21:59 09/20/18 13:17 Heparin Sodium (Porcine) (Heparin 5000 units/ml) 5,000 units EVERY 12 HOURS SUBQ 09/18/18 21:00 10/18/18 20:59 09/20/18 08:24 Hydromorphone HCl (Dilaudid) 1 mg Q4H PRN IVP Severe Breakthru Pain (>7) 09/20/18 07:30 09/27/18 07:29 09/20/18 08:17 Insulin Aspart (NovoLOG) BEFORE MEALS AND HS SUBQ 09/18/18 21:00 10/18/18 20:59 09/20/18 12:12 Lorazepam (Ativan 2mg/ml 1ml) 0.5 mg Q4H PRN IV For Anxiety 09/18/18 18:30 09/25/18 18:29 09/19/18 09:24 Methadone HCl (Methadone HCl) 10 mg Q6H PRN ORAL Severe Pain (Pain Scale 7-10) 09/20/18 07:29 09/27/18 07:28 09/20/18 13:18 Ondansetron HCl (Zofran) 4 mg Q6H PRN IVP Nausea & Vomiting 09/18/18 18:30 10/18/18 18:29 09/19/18 06:24 Polyethylene Glycol (Miralax) 17 gm HSPRN PRN ORAL Constipation 09/18/18 21:00 10/18/18 20:59 Zolpidem Tartrate (Ambien) 5 mg HSPRN PRN ORAL Insomnia 09/18/18 21:00 09/25/18 20:59 09/19/18 21:57 Allergies: Coded Allergies: No Known Allergies (Unverified , 09/13/18) Subjective Awake, alert, responsive, complaining about severe pain. Objective Last Vital Signs Date Time Temp Pulse Resp B/P (MAP) Pulse Ox O2 Delivery O2 Flow Rate FiO2 09/20/18 12:00 99.3 108 16 152/85 (107) 98 09/20/18 09:00 Room Air Intake and Output 09/19/18 09/20/18 19:00 07:00 Intake Total 60 ml Balance 60 ml Intake Oral 60 ml # Voids 3 1 Objective GENERAL: Awake, responsive, not in acute distress. HEAD AND NECK: Pupils are equal and reactive to light. Extraocular movements intact. Left-sided facial area has vesicular dry rashes with the scab has been removed, not extended to the tip of the nose. Left eye, there is no erythema on the cornea. Neck was supple. No JVD. LUNGS: Good air entry. No wheeze or rales. HEART: S1, S2. Regular rhythm. No gallops. ABDOMEN: Soft, nondistended, nontender. Positive bowel sounds. EXTREMITIES: No cyanosis, clubbing, edema. NEUROLOGIC: Cranial nerves II through XII grossly intact. Motor is 5/5 in all extremities. Gait is intact. RECTAL/GENITOURINARY: Refused and deferred. PSYCHIATRIC: Mood and affect is intact. Assessment/Plan Assessment/Plan ASSESSMENT: 1. Uncontrolled diabetes, most likely secondary to the recent infection. 2. Postherpetic neuralgia. 3. Herpes zoster ophthalmicus of the left eye. PLAN: pain medication including methadone. Follow up Dr. Adams's recommendation. Resume home medication. Accu-Chek with sliding scale. Code status: Full Code. DVT prophylaxis: heparin SQ. Switch Neurontin to Lyrica Discussed with the family member extensively at the bedside. Chau Godfrey MD Sep 20, 2018 14:45
[2018-09-20 16:00] VITALS: BP 141/81
[2018-09-20] MEDS: Lyrica 50mg cap ORAL SCH (18:37)
--- NOTE | 2018-09-20 19:27 | NUR ---
HAND-OFF: Report given to FLAKITO Mata.
[2018-09-20 20:00] VITALS: BP 144/86
--- NOTE | 2018-09-20 20:00 | NUR ---
NURSE NOTES: PATIENT IN BED. ON RA, NO SOB, NO ACUTE DISTRESS. RAC IV INTACT, PATENT, SALINE LOCK. BED IN LOWEST POSITION, LOCKED, ALARMS ON. CALL LIGHT IN REACH. FAMILY BY BEDSIDE. STILL C/O PAIN 10/10 ON L EYE AND L HEAD AREA. WILL FOLLOW UP WITH PAIN MED ORDERED.
[2018-09-21] VITALS: BP 116/68
[2018-09-21 04:00] VITALS: BP 137/77
[2018-09-21] MEDS: HYDROmorphone 1mg/ml Carpuject IVP PRN ×3 (04:11→20:58)
[2018-09-21] MEDS: NovoLOG Insulin Flexpen SUBQ SCH ×4 (06:08→20:57)
--- NOTE | 2018-09-21 07:28 | NUR ---
HAND-OFF: Report given to LEWIS FRAGA.
--- NOTE | 2018-09-21 07:53 | NUR ---
NURSE NOTES: Received report from FLAKITO Mata. Pt in bed awake, [place]mese speaking, family at bedside, no complaints of pain, no apparent distress noted, bed in lowest position, call light within reach.
[2018-09-21 08:00] VITALS: BP 126/80
[2018-09-21] MEDS: Lyrica 50mg cap ORAL SCH ×3 (08:42→17:08)
[2018-09-21] MEDS: Heparin 5000 units/ml inj SUBQ SCH ×2 (08:46→20:59)
--- NOTE | 2018-09-21 11:13 | NUR ---
SYSTEMS QA ANALYSTLUMBER SCALER SI:POSTHERPETIC NEURALGIA . HERPES ZOSTER OPHTHALMICUS VS: BP 145/89, P 111, T 98.2, RR 19, SpO2 98 IS:LYRICA 50mg ZOFRAN 4mg IVP METHADONE 10mg PLAN: PAIN MANAGEMENT DVT PROPHYLAXIS LYRICA 100mg TID MED/SURG STATUS
[2018-09-21] MEDS: Miralax 17gm pkt ORAL PRN (11:54)
[2018-09-21 12:00] VITALS: BP 145/89
--- NOTE | 2018-09-21 13:25 | Consultation ---
History of Present Illness General Date patient seen: Sep 21, 2018 Present Illness Allergies: Coded Allergies: No Known Allergies (Unverified , 09/13/18) Medication History Scheduled Gabapentin* (Gabapentin*), 300 MG ORAL THREE TIMES A DAY, (Reported) Metformin Hcl* (Metformin Hcl*), 500 MG ORAL TWICE A DAY, (Reported) Scheduled PRN Hydrocodone/Acetaminophen 5-325* (Hydrocodone/Acetaminophen 5-325*), 1 TAB ORAL Q6H PRN for For Pain Patient History Healthcare decision maker Resuscitation status Advanced Directive on File Physical Exam Last 24 Hour Vital Signs Date Time Temp Pulse Resp B/P (MAP) Pulse Ox O2 Delivery O2 Flow Rate FiO2 09/21/18 12:00 98.0 100 17 145/89 (107) 97 09/21/18 10:44 99.0 09/21/18 09:09 98.9 09/21/18 09:00 Room Air 09/21/18 08:00 99.0 111 18 126/80 (95) 98 09/21/18 04:00 98.2 106 19 137/77 (97) 98 09/21/18 00:00 97.9 111 18 116/68 (84) 97 09/20/18 21:00 Room Air 09/20/18 20:00 98.4 112 19 144/86 (105) 97 09/20/18 16:00 98.6 114 20 141/81 (101) 99 Intake and Output 09/20/18 09/21/18 18:59 06:59 Intake Total 600 ml 240 ml Balance 600 ml 240 ml Intake Oral 600 ml 240 ml # Voids 2 2 Height (Feet): 5 Height (Inches): 1.00 Weight (Pounds): 110 Medications Current Medications Medications (Trade) Dose Ordered Sig/Maryanne Route PRN Reason Start Time Stop Time Status Last Admin Dose Admin Acetaminophen (Tylenol) 650 mg Q4H PRN ORAL T>100.5 09/18/18 18:30 10/18/18 18:29 09/21/18 08:39 Acetaminophen/ Hydrocodone Bitart ([place] 5/325) 1 tab Q6H PRN ORAL Moderate Pain (Pain Scale 4-6) 09/18/18 18:30 09/25/18 18:29 Dextrose (Dextrose 50%) 25 ml Q30M PRN IV Hypoglycemia 09/18/18 18:30 10/18/18 18:29 Dextrose (Dextrose 50%) 50 ml Q30M PRN IV Hypoglycemia 09/18/18 18:30 10/18/18 18:29 Heparin Sodium (Porcine) (Heparin 5000 units/ml) 5,000 units EVERY 12 HOURS SUBQ 09/18/18 21:00 10/18/18 20:59 09/21/18 08:46 Hydromorphone HCl (Dilaudid) 1 mg Q4H PRN IVP Severe Breakthru Pain (>7) 09/20/18 07:30 09/27/18 07:29 09/21/18 10:14 Insulin Aspart (NovoLOG) BEFORE MEALS AND HS SUBQ 09/18/18 21:00 10/18/18 20:59 09/21/18 12:00 Lorazepam (Ativan 2mg/ml 1ml) 0.5 mg Q4H PRN IV For Anxiety 09/18/18 18:30 09/25/18 18:29 09/19/18 09:24 Methadone HCl (Methadone HCl) 10 mg Q6H PRN ORAL Severe Pain (Pain Scale 7-10) 09/20/18 07:29 09/27/18 07:28 09/21/18 08:40 Ondansetron HCl (Zofran) 4 mg Q6H PRN IVP Nausea & Vomiting 09/18/18 18:30 10/18/18 18:29 09/19/18 06:24 Polyethylene Glycol (Miralax) 17 gm HSPRN PRN ORAL Constipation 09/18/18 21:00 10/18/18 20:59 09/21/18 11:54 Pregabalin (Lyrica) 50 mg THREE TIMES A DAY ORAL 09/20/18 18:00 10/20/18 17:59 09/21/18 08:42 Zolpidem Tartrate (Ambien) 5 mg HSPRN PRN ORAL Insomnia 09/18/18 21:00 09/25/18 20:59 09/19/18 21:57 Assessment/Plan Assessment/Plan: (1) Postherpetic neuralgia (2) Herpes zoster ophthalmicus of the left eye (3) Left sided facial pain seen dictated Jc Hernandez Sep 21, 2018 13:25
[2018-09-21] MEDS ORDERED: Naloxone 0.4mg/ml Inj IVP PRN (13:30)
[2018-09-21] MEDS: Naloxegol Oxalate 25mg tab ORAL SCH (13:57)
--- NOTE | 2018-09-21 14:35 | NUR ---
NURSE NOTES: Pain reassessment of Lyrica 50mg PO TID due at 1352, not charted in reassessment of eMAR as original order Lyrica 50 mg PO TID was discontinued by Terrence Hernandez and changed to Lyrica 100mg. Lyrica 50mg PO administered by REGINA Gonzalez as medical staffing coordinator was on lunch at 1322. Reassessment done pt has pain 10/10, intermittent stabbing, tingling pain in left eye. Addendum: 09/21/18 at 1443 by LEWIS LINARES RN NURSE NOTES: Rn able to chart reassessment in eMAR
[2018-09-21 16:00] VITALS: BP 133/89
--- NOTE | 2018-09-21 19:13 | NUR ---
HAND-OFF: Report given to FLAKITO Goddard.
--- NOTE | 2018-09-21 19:16 | NUR ---
NURSE NOTES: Received report from FLAKITO Dickerson. Pt in bed awake, semi fowlers position. Kosovan speaking only, family- daughter and son at bedside, no complaints of pain at this time, no apparent distress noted, on room air. Bed in lowest position, call light within reach, locked, side rails x2. bed alarm on and will continue to monitor. Asked pt and family to call as needed for assistance. Will continue to monitor and follow plan of care. Will continue to reassess pain as pt pain can return suddenly.
--- NOTE | 2018-09-21 19:45 | Consultation ---
DATE OF CONSULTATION: 09/21/2018 PAIN MANAGEMENT CONSULTATION REFERRING PHYSICIAN: Jabier Adams M.D. CONSULTING PHYSICIAN: Francois Montero M.D. PHYSICIAN [employer]ED [employer] BOARD PANELS DEBURRER: Candace Valle CHIEF COMPLAINT: Left-sided facial pain. HISTORY OF PRESENT ILLNESS: This is a 63-year-old female, who is being seen on the Med/Surg floor of [facility] for initial pain management consultation. The patient is in bed with family at bedside, was admitted under the care of Dr. Godfrey with herpes zoster ophthalmicus causing her post herpetic neuralgia. At this time, the patient is seen in the bed, reports that she has been having shingles five weeks ago. Three weeks ago, started having pain. It is a constant acute pain, rating at 10/10, describing it as a burning pain. Nothing has been increasing the pain, nothing has been reducing the pain. Was started on methadone 10 mg tablet every six hours as needed for severe pain. Dilaudid 1 mg IV every four hours as needed for severe breakthrough pain, Lyrica 50 mg three times a day with minimal pain relief. Due to this, we were consulted so that the patient would have adequate pain control while here in the hospital. PAST MEDICAL HISTORY: Diabetes mellitus. PAST SURGICAL HISTORY: Denies. SOCIAL HISTORY: Denies smoking tobacco, drinking alcohol, and IV drug abuse. ALLERGIES: No known drug allergies. MEDICATIONS: Gabapentin, metformin, and [place]. REVIEW OF SYSTEMS: Denies rash, fever, chills, sweating, dizziness, drowsiness, blurred vision, sore throat, or change in weight. No shortness of breath or chest pain. No nausea, vomiting, diarrhea, or blood in the stool or urine. No bowel or bladder incontinence. She is complaining of left-sided facial pain. PHYSICAL EXAMINATION: GENERAL: Alert, awake, and oriented. VITAL SIGNS: Blood pressure 145/89, heart rate is 100, oxygen saturation is 97%, respiratory rate 17, and temperature 98 degrees Fahrenheit. HEENT: PERRLA with skin discoloration and tenderness to palpation of the left forehead. NECK: Range of motion is full in all directions. No tenderness to paracervical muscles. No adenopathy. LUNGS: Clear bilaterally. HEART: Regular. ABDOMEN: Soft and nontender. BACK: Range of motion is full with flexion and extension. EXTREMITIES: Upper and lower extremity range of motion full in all directions. No cyanosis. No clubbing. No edema. Sensory is intact. Reflexes are not obtainable. No adenopathy. ASSESSMENT AND PLAN: A 63-year-old female with post herpetic neuralgia, herpes zoster, left-sided facial pain. The patient will be increased to the 100 mg of Lyrica three times a day. We will make the methadone 10mg tablet every eight hours around the clock, hold for over sedation. We will add lidocaine cream to the forehead every six hours. Continue the Dilaudid for severe breakthrough pain and Movantik 25 mg daily for opioid-induced constipation. The patient was discussed with Dr. Montero and he concurred. We will follow the patient. Thank you very much for the courtesy of this consultation. Francois Montero M.D. OSWALDO Valle DR: Taty JOB#: [id number] CC: CARL
[2018-09-21 20:00] VITALS: BP 145/75
--- NOTE | 2018-09-21 21:46 | Internal Med Progress Note ---
Subjective Physician Name Chau Godfrey Attending Physician Chau Godfrey MD Current Medications Medications (Trade) Dose Ordered Sig/Maryanne Route PRN Reason Start Time Stop Time Status Last Admin Dose Admin Acetaminophen (Tylenol) 650 mg Q4H PRN ORAL T>100.5 09/18/18 18:30 10/18/18 18:29 09/21/18 08:39 Acetaminophen/ Hydrocodone Bitart ([place] 5/325) 1 tab Q6H PRN ORAL Moderate Pain (Pain Scale 4-6) 09/18/18 18:30 09/25/18 18:29 Dextrose (Dextrose 50%) 25 ml Q30M PRN IV Hypoglycemia 09/18/18 18:30 10/18/18 18:29 Dextrose (Dextrose 50%) 50 ml Q30M PRN IV Hypoglycemia 09/18/18 18:30 10/18/18 18:29 Heparin Sodium (Porcine) (Heparin 5000 units/ml) 5,000 units EVERY 12 HOURS SUBQ 09/18/18 21:00 10/18/18 20:59 09/21/18 20:59 Hydromorphone HCl (Dilaudid) 1 mg Q4H PRN IVP Severe Breakthru Pain (>7) 09/20/18 07:30 09/27/18 07:29 09/21/18 20:58 Insulin Aspart (NovoLOG) BEFORE MEALS AND HS SUBQ 09/18/18 21:00 10/18/18 20:59 09/21/18 20:57 Lidocaine (Xylocaine 5% cream) 1 applic Q6HR TOPIC 09/21/18 14:00 10/21/18 13:59 09/21/18 14:30 Lorazepam (Ativan 2mg/ml 1ml) 0.5 mg Q4H PRN IV For Anxiety 09/18/18 18:30 09/25/18 18:29 09/19/18 09:24 Methadone HCl (Methadone HCl) 10 mg Q8HR ORAL 09/21/18 15:00 09/28/18 14:59 09/21/18 21:01 Naloxegol (Movantik) 25 mg DAILY ORAL 09/21/18 13:30 10/21/18 13:29 09/21/18 13:57 Naloxone HCl (Narcan) 0.2 mg Q2M PRN IVP respritory depression 09/21/18 13:30 10/21/18 13:29 Ondansetron HCl (Zofran) 4 mg Q6H PRN IVP Nausea & Vomiting 09/18/18 18:30 10/18/18 18:29 09/21/18 13:20 Polyethylene Glycol (Miralax) 17 gm HSPRN PRN ORAL Constipation 09/18/18 21:00 10/18/18 20:59 09/21/18 11:54 Pregabalin (Lyrica) 100 mg THREE TIMES A DAY ORAL 09/21/18 18:00 10/20/18 17:59 09/21/18 17:08 Zolpidem Tartrate (Ambien) 5 mg HSPRN PRN ORAL Insomnia 09/18/18 21:00 09/25/18 20:59 09/19/18 21:57 Allergies: Coded Allergies: No Known Allergies (Unverified , 09/13/18) Subjective Awake, alert, responsive, complaining about severe facial pain. Objective Last Vital Signs Date Time Temp Pulse Resp B/P (MAP) Pulse Ox O2 Delivery O2 Flow Rate FiO2 09/21/18 20:00 97.9 103 18 145/75 (98) 97 09/21/18 09:00 Room Air Intake and Output 09/20/18 09/21/18 19:00 07:00 Intake Total 600 ml 240 ml Balance 600 ml 240 ml Intake Oral 600 ml 240 ml # Voids 2 2 Objective GENERAL: Awake, responsive, not in acute distress. HEAD AND NECK: Pupils are equal and reactive to light. Extraocular movements intact. Left-sided facial area has vesicular dry rashes with the scab has been removed, not extended to the tip of the nose. Left eye, there is no erythema on the cornea. Neck was supple. No JVD. LUNGS: Good air entry. No wheeze or rales. HEART: S1, S2. Regular rhythm. No gallops. ABDOMEN: Soft, nondistended, nontender. Positive bowel sounds. EXTREMITIES: No cyanosis, clubbing, edema. NEUROLOGIC: Cranial nerves II through XII grossly intact. Motor is 5/5 in all extremities. Gait is intact. RECTAL/GENITOURINARY: Refused and deferred. PSYCHIATRIC: Mood and affect is intact. Assessment/Plan Assessment/Plan ASSESSMENT: 1. Uncontrolled diabetes, most likely secondary to the recent infection. 2. Postherpetic neuralgia. 3. Herpes zoster ophthalmicus of the left eye. PLAN: pain medication including methadone. Follow up Dr. Adams's recommendation. Resume home medication. Accu-Chek with sliding scale. Code status: Full Code. DVT prophylaxis: heparin SQ. Lyrica 100 mg po TID Discussed with daughter extensively at the bedside. Chau Godfrey MD Sep 21, 2018 21:46
[2018-09-22] VITALS: BP_SYST 127; BP_SYST 128; BP_DIAS 74; BP_DIAS 84
[2018-09-22 04:00] VITALS: BP 127/72
[2018-09-22] MEDS: NovoLOG Insulin Flexpen SUBQ SCH ×4 (06:53→21:05)
--- NOTE | 2018-09-22 07:30 | NUR ---
NURSE NOTES: Received pt from FLAKITO MONTERO. Pt is alert and orient x4. pt is in RA, no SOB or acute respiratory distress noted. pt has intact iv access LAC 20G SL. family member are with pt in the room. Pt is in pain around eyes 7/10. all needs attended, bed is locked and is in the lowest position. call light within easy reach. will continue to monitor.
--- NOTE | 2018-09-22 07:49 | NUR ---
HAND-OFF: Report given to FLAKITO Pierce.
[2018-09-22 08:00] VITALS: BP 135/75
[2018-09-22] MEDS: Lyrica 50mg cap ORAL SCH ×3 (08:06→17:15)
[2018-09-22] MEDS: Naloxegol Oxalate 25mg tab ORAL SCH (08:06)
[2018-09-22] MEDS: HYDROmorphone 1mg/ml Carpuject IVP PRN (08:06)
[2018-09-22] MEDS: Heparin 5000 units/ml inj SUBQ SCH ×2 (08:12→21:08)
--- NOTE | 2018-09-22 08:34 | General Progress Note ---
Assessment/Plan Assessment/Plan: (1) Postherpetic neuralgia (2) Herpes zoster ophthalmicus of the left eye (3) Left sided facial pain Patient to be continued on Morphine, Dilaudid and Lyrica. D/w Dr. Montero and he concurred. Subjective Date patient seen: Sep 22, 2018 Time patient seen: 07:15 - am Allergies: Coded Allergies: No Known Allergies (Unverified , 09/13/18) Subjective REVIEW OF SYSTEMS: Denies rash, fever, chills, sweating, dizziness, drowsiness, blurred vision, sore throat, or change in weight. No shortness of breath or chest pain. No nausea, vomiting, diarrhea, or blood in the stool or urine. No bowel or bladder incontinence. She is complaining of left-sided facial pain. SUBJECTIVE: Patient is in bed with family at bed side. Pain is at a 4/10 on the Methadone and Dilaudid. Lyrica increase has helped. Objective Last 24 Hour Vital Signs Date Time Temp Pulse Resp B/P (MAP) Pulse Ox O2 Delivery O2 Flow Rate FiO2 09/22/18 08:00 98.6 100 18 135/75 (95) 98 09/22/18 04:00 98.2 101 19 127/72 (90) 95 09/22/18 00:00 98.3 112 19 127/74 (91) 97 09/21/18 21:00 Room Air 09/21/18 20:00 97.9 103 18 145/75 (98) 97 09/21/18 16:00 98.7 102 19 133/89 (104) 97 09/21/18 12:00 98.0 100 17 145/89 (107) 97 09/21/18 10:44 99.0 09/21/18 09:09 98.9 09/21/18 09:00 Room Air Intake and Output 09/21/18 09/22/18 19:00 07:00 Intake Total 318 ml 118 ml Balance 318 ml 118 ml Intake Oral 318 ml 118 ml # Voids 3 Height (Feet): 5 Height (Inches): 1.00 Weight (Pounds): 110 Objective GENERAL: Alert, awake, and oriented. LUNGS: Clear bilaterally. HEART: Regular. ABDOMEN: Soft and nontender. EXTREMITIES: No cyanosis. No clubbing. No edema. NEURO: No changes. Jc Hernandez Sep 22, 2018 08:34
--- NOTE | 2018-09-22 11:19 | NUR ---
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 HERPES ZOSTER OPHTHALMICUS VS: BP 135/75, P 112, T 98.6, RR 19, SpO2 95 IS:HEPARIN SUBQ DILAUDID 1mg IVP LYRICA 100mg MOVANTIK 25mg NOVOLOG SUBQ METHADONE 10mg PLAN: PAIN MANAGEMENT RESUME HOME MEDS MED/SURG STATUS
[2018-09-22 12:00] VITALS: BP 152/88
[2018-09-22] MEDS: Miralax 17gm pkt ORAL PRN (12:08)
[2018-09-22] MEDS: HYDROcodone/Acetamin 5/325 tab ORAL PRN (12:09)
--- NOTE | 2018-09-22 12:59 | Pulmonology Progress Note ---
Assessment/Plan Problems: (1) Post herpetic neuralgia (2) Herpes zoster ophthalmicus of left eye Assessment/Plan increase methadone and gabapentin, dilaudid 1 mg trial of neurontin again. Subjective Allergies: Coded Allergies: No Known Allergies (Unverified , 09/13/18) Objective Last 24 Hour Vital Signs Date Time Temp Pulse Resp B/P (MAP) Pulse Ox O2 Delivery O2 Flow Rate FiO2 09/22/18 12:39 98.6 09/22/18 12:00 97.9 98 15 152/88 (109) 96 09/22/18 09:00 Room Air 09/22/18 08:36 98.6 09/22/18 08:00 98.6 100 18 135/75 (95) 98 09/22/18 04:00 98.2 101 19 127/72 (90) 95 09/22/18 00:00 98.3 112 19 127/74 (91) 97 09/21/18 21:00 Room Air 09/21/18 20:00 97.9 103 18 145/75 (98) 97 09/21/18 16:00 98.7 102 19 133/89 (104) 97 Intake and Output 09/21/18 09/22/18 18:59 06:59 Intake Total 318 ml 118 ml Balance 318 ml 118 ml Intake Oral 318 ml 118 ml # Voids 3 General Appearance: WD/WN HEENT: normocephalic, atraumatic Respiratory/Chest: chest wall non-tender, lungs clear Breasts: no masses Cardiovascular: normal peripheral pulses Abdomen: normal bowel sounds, no organomegaly Extremities: no clubbing Skin: no rash Current Medications Medications (Trade) Dose Ordered Sig/Maryanne Route PRN Reason Start Time Stop Time Status Last Admin Dose Admin Acetaminophen (Tylenol) 650 mg Q4H PRN ORAL T>100.5 09/18/18 18:30 10/18/18 18:29 09/21/18 08:39 Acetaminophen/ Hydrocodone Bitart ([place] 5/325) 1 tab Q6H PRN ORAL Moderate Pain (Pain Scale 4-6) 09/18/18 18:30 09/25/18 18:29 09/22/18 12:09 Dextrose (Dextrose 50%) 25 ml Q30M PRN IV Hypoglycemia 09/18/18 18:30 10/18/18 18:29 Dextrose (Dextrose 50%) 50 ml Q30M PRN IV Hypoglycemia 09/18/18 18:30 10/18/18 18:29 Heparin Sodium (Porcine) (Heparin 5000 units/ml) 5,000 units EVERY 12 HOURS SUBQ 09/18/18 21:00 10/18/18 20:59 09/22/18 08:12 Hydromorphone HCl (Dilaudid) 1 mg Q4H PRN IVP Severe Breakthru Pain (>7) 09/20/18 07:30 09/27/18 07:29 09/22/18 08:06 Insulin Aspart (NovoLOG) BEFORE MEALS AND HS SUBQ 09/18/18 21:00 10/18/18 20:59 09/22/18 12:10 Lidocaine (Xylocaine 5% cream) 1 applic Q6HR TOPIC 09/21/18 14:00 10/21/18 13:59 09/21/18 14:30 Lorazepam (Ativan 2mg/ml 1ml) 0.5 mg Q4H PRN IV For Anxiety 09/18/18 18:30 09/25/18 18:29 09/19/18 09:24 Methadone HCl (Methadone HCl) 10 mg Q8HR ORAL 09/21/18 15:00 09/28/18 14:59 09/22/18 05:20 Naloxegol (Movantik) 25 mg DAILY ORAL 09/21/18 13:30 10/21/18 13:29 09/22/18 08:06 Naloxone HCl (Narcan) 0.2 mg Q2M PRN IVP respritory depression 09/21/18 13:30 10/21/18 13:29 Ondansetron HCl (Zofran) 4 mg Q6H PRN IVP Nausea & Vomiting 09/18/18 18:30 10/18/18 18:29 09/22/18 12:08 Polyethylene Glycol (Miralax) 17 gm HSPRN PRN ORAL Constipation 09/18/18 21:00 10/18/18 20:59 09/22/18 12:08 Pregabalin (Lyrica) 100 mg THREE TIMES A DAY ORAL 09/21/18 18:00 10/20/18 17:59 09/22/18 12:09 Zolpidem Tartrate (Ambien) 5 mg HSPRN PRN ORAL Insomnia 09/18/18 21:00 09/25/18 20:59 09/19/18 21:57 Jabier Adams MD Sep 22, 2018 12:59
[2018-09-22 16:00] VITALS: BP 143/82
--- NOTE | 2018-09-22 19:30 | NUR ---
NURSE NOTES: Received report from FLAKITO Pierce. Patient is in bed sleeping. Patient is on room air with no signs of respiratory distress. No complaints of pain at this time. Bed is locked and in lowest position with 2 side rails up. Call light in reach. Left AC IV is intact. Family is at bedside. Will continue to monitor.
--- NOTE | 2018-09-22 19:40 | NUR ---
HAND-OFF: Report given to FLAKITO GIRON.
[2018-09-22 20:00] VITALS: BP 125/73
--- NOTE | 2018-09-22 22:05 | NUR ---
NURSE NOTES: Patient requested suppository for constipation. Notified MD. Orders carried out.
--- NOTE | 2018-09-22 23:39 | Internal Med Progress Note ---
Subjective Physician Name Chau Godfrey Attending Physician Chau Godfrey MD Current Medications Medications (Trade) Dose Ordered Sig/Maryanne Route PRN Reason Start Time Stop Time Status Last Admin Dose Admin Acetaminophen (Tylenol) 650 mg Q4H PRN ORAL T>100.5 09/18/18 18:30 10/18/18 18:29 09/21/18 08:39 Acetaminophen/ Hydrocodone Bitart ([place] 5/325) 1 tab Q6H PRN ORAL Moderate Pain (Pain Scale 4-6) 09/18/18 18:30 09/25/18 18:29 09/22/18 12:09 Bisacodyl (Dulcolax) 10 mg DAILYPRN PRN RECTAL Constipation 09/22/18 23:00 10/22/18 22:59 09/22/18 23:36 Dextrose (Dextrose 50%) 25 ml Q30M PRN IV Hypoglycemia 09/18/18 18:30 10/18/18 18:29 Dextrose (Dextrose 50%) 50 ml Q30M PRN IV Hypoglycemia 09/18/18 18:30 10/18/18 18:29 Gabapentin (Neurontin) 1,200 mg Q8HR ORAL 09/22/18 14:00 10/22/18 13:59 09/22/18 22:43 Heparin Sodium (Porcine) (Heparin 5000 units/ml) 5,000 units EVERY 12 HOURS SUBQ 09/18/18 21:00 10/18/18 20:59 09/22/18 21:08 Hydromorphone HCl (Dilaudid) 1 mg Q4H PRN IVP Severe Breakthru Pain (>7) 09/20/18 07:30 09/27/18 07:29 09/22/18 08:06 Insulin Aspart (NovoLOG) BEFORE MEALS AND HS SUBQ 09/18/18 21:00 10/18/18 20:59 09/22/18 21:05 Lidocaine (Xylocaine 5% cream) 1 applic Q6HR TOPIC 09/21/18 14:00 10/21/18 13:59 09/21/18 14:30 Lorazepam (Ativan 2mg/ml 1ml) 0.5 mg Q4H PRN IV For Anxiety 09/18/18 18:30 09/25/18 18:29 09/19/18 09:24 Methadone HCl (Methadone HCl) 10 mg Q8HR ORAL 09/21/18 15:00 09/28/18 14:59 09/22/18 22:40 Naloxegol (Movantik) 25 mg DAILY ORAL 09/21/18 13:30 10/21/18 13:29 09/22/18 08:06 Naloxone HCl (Narcan) 0.2 mg Q2M PRN IVP respritory depression 09/21/18 13:30 10/21/18 13:29 Ondansetron HCl (Zofran) 4 mg Q6H PRN IVP Nausea & Vomiting 09/18/18 18:30 10/18/18 18:29 09/22/18 12:08 Polyethylene Glycol (Miralax) 17 gm HSPRN PRN ORAL Constipation 09/18/18 21:00 10/18/18 20:59 09/22/18 12:08 Pregabalin (Lyrica) 100 mg THREE TIMES A DAY ORAL 09/21/18 18:00 10/20/18 17:59 09/22/18 17:15 Zolpidem Tartrate (Ambien) 5 mg HSPRN PRN ORAL Insomnia 09/18/18 21:00 09/25/18 20:59 09/19/18 21:57 Allergies: Coded Allergies: No Known Allergies (Unverified , 09/13/18) Subjective Awake, alert, responsive, complaining about severe facial pain. Objective Last Vital Signs Date Time Temp Pulse Resp B/P (MAP) Pulse Ox O2 Delivery O2 Flow Rate FiO2 09/22/18 21:00 Room Air 09/22/18 20:00 97.0 92 17 125/73 (90) 97 Intake and Output 09/21/18 09/22/18 19:00 07:00 Intake Total 318 ml 118 ml Balance 318 ml 118 ml Intake Oral 318 ml 118 ml # Voids 3 Objective GENERAL: Awake, responsive, not in acute distress. HEAD AND NECK: Pupils are equal and reactive to light. Extraocular movements intact. Left-sided facial area has vesicular dry rashes with the scab has been removed, not extended to the tip of the nose. Left eye, there is no erythema on the cornea. Neck was supple. No JVD. LUNGS: Good air entry. No wheeze or rales. HEART: S1, S2. Regular rhythm. No gallops. ABDOMEN: Soft, nondistended, nontender. Positive bowel sounds. EXTREMITIES: No cyanosis, clubbing, edema. NEUROLOGIC: Cranial nerves II through XII grossly intact. Motor is 5/5 in all extremities. Gait is intact. RECTAL/GENITOURINARY: Refused and deferred. PSYCHIATRIC: Mood and affect is intact. Assessment/Plan Assessment/Plan ASSESSMENT: 1. Uncontrolled diabetes, most likely secondary to the recent infection. 2. Postherpetic neuralgia. 3. Herpes zoster ophthalmicus of the left eye. PLAN: pain medication including methadone. Follow up Dr. Adams's recommendation. Resume home medication. Accu-Chek with sliding scale. Code status: Full Code. DVT prophylaxis: heparin SQ. Lyrica 100 mg po TID Start Gabapentin. Chau Godfrey MD Sep 22, 2018 23:39
[2018-09-23] VITALS: BP 124/74
[2018-09-23 04:00] VITALS: BP 152/79
[2018-09-23] MEDS: NovoLOG Insulin Flexpen SUBQ SCH ×2 (06:42→12:04)
[2018-09-23 07:09] LABS: BASOPHILS % (AUTO) 0.7 % (0.0-2.0); EOSINOPHILS % (AUTO) 0.1 % (0.0-3.0); HEMATOCRIT 48.1 % (37.0-47.0); HEMOGLOBIN 15.6 G/DL (12.0-16.0); LYMPHOCYTES % (AUTO) 14.3 % (20.0-45.0); MEAN CORPUSCULAR VOLUME 83 FL (80-99); MONOCYTES % (AUTO) 8.1 % (1.0-10.0); NEUTROPHILS % (AUTO) 76.8 % (45.0-75.0); PLATELET COUNT 404 K/UL (150-450); RED BLOOD COUNT 5.77 M/UL (4.20-5.40); RED CELL DISTRIBUTION WIDTH 14.3 % (11.6-14.8); WHITE BLOOD COUNT 13.9 K/UL (4.8-10.8)
[2018-09-23 07:22] LABS: ALANINE AMINOTRANSFERASE 18 U/L (12-78); ALBUMIN 3.7 G/DL (3.4-5.0); ALBUMIN/GLOBULIN RATIO 1.1 (1.0-2.7); ALKALINE PHOSPHATASE 92 U/L (46-116); ANION GAP 5 mmol/L (5-15); ASPARTATE AMINO TRANSFERASE 28 U/L (15-37); BILIRUBIN,TOTAL 0.7 MG/DL (0.2-1.0); BLOOD UREA NITROGEN 14 mg/dL (7-18); CALCIUM 9.9 MG/DL (8.5-10.1); CARBON DIOXIDE 32 MMOL/L (21-32); CHLORIDE 98 MMOL/L (98-107); PHOSPHORUS 5.1 MG/DL (2.5-4.9); POTASSIUM 4.9 MMOL/L (3.5-5.1); SODIUM 135 MMOL/L (136-145)
--- NOTE | 2018-09-23 07:49 | NUR ---
HAND-OFF: Report given to FLAKITO Dudley.
--- NOTE | 2018-09-23 07:52 | NUR ---
NURSE NOTES: Patient awake and alert x4, on room air, no sign of distress and shortness of breath; no sign of chest pain; IV LAC flushes well; family member at the bed side; Left eye side shingles; bed at lowest position, side rails up x2, breaks engaged; call light within reach; will keep monitoring.
[2018-09-23 08:00] VITALS: BP 131/67
[2018-09-23 08:00] LABS: CREATININE 0.9 MG/DL (0.55-1.30)
[2018-09-23] MEDS: Lyrica 50mg cap ORAL SCH ×2 (08:53→12:05)
[2018-09-23] MEDS: Naloxegol Oxalate 25mg tab ORAL SCH (08:54)
[2018-09-23] MEDS: Heparin 5000 units/ml inj SUBQ SCH (08:55)
--- NOTE | 2018-09-23 08:57 | General Progress Note ---
Assessment/Plan Assessment/Plan: (1) Postherpetic neuralgia (2) Herpes zoster ophthalmicus of the left eye (3) Left sided facial pain Patient to be continued on Morphine, Dilaudid and Lyrica. Rx for Methadone, Neurontin and Narcan nasal spray written in anticipation fo discharge. Was advised to f/u with PMD when discharged. D/w Dr. Montero and he concurred. Subjective Date patient seen: Sep 23, 2018 Time patient seen: 07:00 - am Allergies: Coded Allergies: No Known Allergies (Unverified , 09/13/18) Subjective REVIEW OF SYSTEMS: Denies rash, fever, chills, sweating, dizziness, drowsiness, blurred vision, sore throat, or change in weight. No shortness of breath or chest pain. No nausea, vomiting, diarrhea, or blood in the stool or urine. No bowel or bladder incontinence. SUBJECTIVE: Patient showing no signs of pain or distress. She is in bed family at bed side. Has taken 3 Methadone, 1 Dilaudid and 1 [place] in the last 24hrs. Denies pain at this time. Objective Last 24 Hour Vital Signs Date Time Temp Pulse Resp B/P (MAP) Pulse Ox O2 Delivery O2 Flow Rate FiO2 09/23/18 04:00 98.4 102 20 152/79 (103) 99 09/23/18 00:00 98.2 93 18 124/74 (91) 97 09/22/18 21:00 Room Air 09/22/18 20:00 97.0 92 17 125/73 (90) 97 09/22/18 16:00 97.8 89 17 143/82 (102) 96 09/22/18 12:39 98.6 09/22/18 12:00 97.9 98 15 152/88 (109) 96 09/22/18 09:00 Room Air Intake and Output 09/22/18 09/23/18 19:00 07:00 Intake Total 400 ml 240 ml Balance 400 ml 240 ml Intake Oral 400 ml 240 ml # Voids 2 Laboratory Tests 09/23/18 06:05: White Blood Count 13.9H, Red Blood Count 5.77H, Hemoglobin 15.6, Hematocrit 48.1H, Mean Corpuscular Volume 83, Mean Corpuscular Hemoglobin 27.0, Mean Corpuscular Hemoglobin Concent 32.4, Red Cell Distribution Width 14.3, Platelet Count 404, Mean Platelet Volume 5.7L, Neutrophils (%) (Auto) 76.8H, Lymphocytes (%) (Auto) 14.3L, Monocytes (%) (Auto) 8.1, Eosinophils (%) (Auto) 0.1, Basophils (%) (Auto) 0.7, Sodium Level 135L, Potassium Level 4.9, Chloride Level 98, Carbon Dioxide Level 32, Anion Gap 5, Blood Urea Nitrogen 14, Creatinine 0.9, Estimat Glomerular Filtration Rate > 60, Glucose Level 178H, Calcium Level 9.9, Phosphorus Level 5.1H, Magnesium Level 2.3, Total Bilirubin 0.7, Aspartate Amino Transf (AST/SGOT) 28, Alanine Aminotransferase (ALT/SGPT) 18, Alkaline Phosphatase 92, Total Protein 7.2, Albumin 3.7, Globulin 3.5, Albumin/Globulin Ratio 1.1 Height (Feet): 5 Height (Inches): 1.00 Weight (Pounds): 110 Objective GENERAL: Alert, awake, and oriented. LUNGS: Clear bilaterally. HEART: Regular. ABDOMEN: Soft and nontender. EXTREMITIES: No cyanosis. No clubbing. No edema. NEURO: No changes. Jc Hernandez Sep 23, 2018 08:57
[2018-09-23 12:00] VITALS: BP 134/82
[2018-09-23] MEDS: HYDROcodone/Acetamin 5/325 tab ORAL PRN (12:04)
--- NOTE | 2018-09-23 13:21 | Pulmonology Progress Note ---
Assessment/Plan Problems: (1) Post herpetic neuralgia (2) Herpes zoster ophthalmicus of left eye Assessment/Plan increase methadone and gabapentin, dilaudid 1 mg trial of neurontin again. dc home with oral analgesics Subjective ROS Limited/Unobtainable: No Constitutional: Reports: no symptoms HEENT: Repors: no symptoms Allergies: Coded Allergies: No Known Allergies (Unverified , 09/13/18) Objective Last 24 Hour Vital Signs Date Time Temp Pulse Resp B/P (MAP) Pulse Ox O2 Delivery O2 Flow Rate FiO2 09/23/18 12:34 98.8 09/23/18 12:00 99.1 120 18 134/82 (99) 96 09/23/18 09:00 Room Air 09/23/18 08:00 98.8 113 18 131/67 (88) 98 09/23/18 04:00 98.4 102 20 152/79 (103) 99 09/23/18 00:00 98.2 93 18 124/74 (91) 97 09/22/18 21:00 Room Air 09/22/18 20:00 97.0 92 17 125/73 (90) 97 09/22/18 16:00 97.8 89 17 143/82 (102) 96 Intake and Output 09/22/18 09/23/18 19:00 07:00 Intake Total 400 ml 240 ml Balance 400 ml 240 ml Intake Oral 400 ml 240 ml # Voids 2 General Appearance: WD/WN HEENT: normocephalic Respiratory/Chest: chest wall non-tender, lungs clear Breasts: no masses Cardiovascular: regular rhythm Abdomen: normal bowel sounds, soft, non tender Extremities: no cyanosis, no clubbing Laboratory Tests 09/23/18 06:05: White Blood Count 13.9H, Red Blood Count 5.77H, Hemoglobin 15.6, Hematocrit 48.1H, Mean Corpuscular Volume 83, Mean Corpuscular Hemoglobin 27.0, Mean Corpuscular Hemoglobin Concent 32.4, Red Cell Distribution Width 14.3, Platelet Count 404, Mean Platelet Volume 5.7L, Neutrophils (%) (Auto) 76.8H, Lymphocytes (%) (Auto) 14.3L, Monocytes (%) (Auto) 8.1, Eosinophils (%) (Auto) 0.1, Basophils (%) (Auto) 0.7, Sodium Level 135L, Potassium Level 4.9, Chloride Level 98, Carbon Dioxide Level 32, Anion Gap 5, Blood Urea Nitrogen 14, Creatinine 0.9, Estimat Glomerular Filtration Rate > 60, Glucose Level 178H, Calcium Level 9.9, Phosphorus Level 5.1H, Magnesium Level 2.3, Total Bilirubin 0.7, Aspartate Amino Transf (AST/SGOT) 28, Alanine Aminotransferase (ALT/SGPT) 18, Alkaline Phosphatase 92, Total Protein 7.2, Albumin 3.7, Globulin 3.5, Albumin/Globulin Ratio 1.1 Current Medications Medications (Trade) Dose Ordered Sig/Maryanne Route PRN Reason Start Time Stop Time Status Last Admin Dose Admin Acetaminophen (Tylenol) 650 mg Q4H PRN ORAL T>100.5 09/18/18 18:30 10/18/18 18:29 09/21/18 08:39 Acetaminophen/ Hydrocodone Bitart ([place] 5/325) 1 tab Q6H PRN ORAL Moderate Pain (Pain Scale 4-6) 09/18/18 18:30 09/25/18 18:29 09/23/18 12:04 Bisacodyl (Dulcolax) 10 mg DAILYPRN PRN RECTAL Constipation 09/22/18 23:00 10/22/18 22:59 09/22/18 23:36 Dextrose (Dextrose 50%) 25 ml Q30M PRN IV Hypoglycemia 09/18/18 18:30 10/18/18 18:29 Dextrose (Dextrose 50%) 50 ml Q30M PRN IV Hypoglycemia 09/18/18 18:30 10/18/18 18:29 Gabapentin (Neurontin) 1,200 mg Q8HR ORAL 09/22/18 14:00 10/22/18 13:59 09/23/18 13:17 Heparin Sodium (Porcine) (Heparin 5000 units/ml) 5,000 units EVERY 12 HOURS SUBQ 09/18/18 21:00 10/18/18 20:59 09/23/18 08:55 Hydromorphone HCl (Dilaudid) 1 mg Q4H PRN IVP Severe Breakthru Pain (>7) 09/20/18 07:30 09/27/18 07:29 09/22/18 08:06 Insulin Aspart (NovoLOG) BEFORE MEALS AND HS SUBQ 09/18/18 21:00 10/18/18 20:59 09/23/18 12:04 Lidocaine (Xylocaine 5% cream) 1 applic Q6HR TOPIC 09/21/18 14:00 10/21/18 13:59 09/21/18 14:30 Lorazepam (Ativan 2mg/ml 1ml) 0.5 mg Q4H PRN IV For Anxiety 09/18/18 18:30 09/25/18 18:29 09/19/18 09:24 Methadone HCl (Methadone HCl) 10 mg Q8HR ORAL 09/21/18 15:00 09/28/18 14:59 09/23/18 13:17 Naloxegol (Movantik) 25 mg DAILY ORAL 09/21/18 13:30 10/21/18 13:29 09/23/18 08:54 Naloxone HCl (Narcan) 0.2 mg Q2M PRN IVP respritory depression 09/21/18 13:30 10/21/18 13:29 Ondansetron HCl (Zofran) 4 mg Q6H PRN IVP Nausea & Vomiting 09/18/18 18:30 10/18/18 18:29 09/22/18 12:08 Polyethylene Glycol (Miralax) 17 gm HSPRN PRN ORAL Constipation 09/18/18 21:00 10/18/18 20:59 09/22/18 12:08 Pregabalin (Lyrica) 100 mg THREE TIMES A DAY ORAL 09/21/18 18:00 10/20/18 17:59 09/23/18 12:05 Zolpidem Tartrate (Ambien) 5 mg HSPRN PRN ORAL Insomnia 09/18/18 21:00 09/25/18 20:59 09/19/18 21:57 Jabier Adams MD Sep 23, 2018 13:21
[2018-09-23] MEDS ORDERED: METHADONE HCL10 MG ORAL (13:23)
[2018-09-23] MEDS ORDERED: NORCO 5-325 TA1 EACH ORAL (13:23)
--- NOTE | 2018-09-23 15:18 | NUR ---
NURSE NOTES: Patient discharge around 1508, accompanied by family member. Printed materials and original prescription for medication provided to patient. Belonging list signed upon discharge. IV access and name tag removed upon discharge. Patient was stable upon discharge.
--- NOTE | 2018-09-23 19:33 | Internal Med Progress Note ---
Subjective Physician Name Chau Godfrey Attending Physician Chau Godfrey MD Allergies: Coded Allergies: No Known Allergies (Unverified , 09/13/18) Subjective Awake, alert, responsive, C/O less facial pain. Objective Last Vital Signs Date Time Temp Pulse Resp B/P (MAP) Pulse Ox O2 Delivery O2 Flow Rate FiO2 09/23/18 12:34 98.8 09/23/18 12:00 120 18 134/82 (99) 96 09/23/18 09:00 Room Air Laboratory Tests Test 09/23/18 06:05 White Blood Count 13.9 K/UL (4.8-10.8) H Red Blood Count 5.77 M/UL (4.20-5.40) H Hemoglobin 15.6 G/DL (12.0-16.0) Hematocrit 48.1 % (37.0-47.0) H Mean Corpuscular Volume 83 FL (80-99) Mean Corpuscular Hemoglobin 27.0 PG (27.0-31.0) Mean Corpuscular Hemoglobin Concent 32.4 G/DL (32.0-36.0) Red Cell Distribution Width 14.3 % (11.6-14.8) Platelet Count 404 K/UL (150-450) Mean Platelet Volume 5.7 FL (6.5-10.1) L Neutrophils (%) (Auto) 76.8 % (45.0-75.0) H Lymphocytes (%) (Auto) 14.3 % (20.0-45.0) L Monocytes (%) (Auto) 8.1 % (1.0-10.0) Eosinophils (%) (Auto) 0.1 % (0.0-3.0) Basophils (%) (Auto) 0.7 % (0.0-2.0) Sodium Level 135 MMOL/L (136-145) L Potassium Level 4.9 MMOL/L (3.5-5.1) Chloride Level 98 MMOL/L (98-107) Carbon Dioxide Level 32 MMOL/L (21-32) Anion Gap 5 mmol/L (5-15) Blood Urea Nitrogen 14 mg/dL (7-18) Creatinine 0.9 MG/DL (0.55-1.30) Estimat Glomerular Filtration Rate > 60 mL/min (>60) Glucose Level 178 MG/DL (74-106) H Calcium Level 9.9 MG/DL (8.5-10.1) Phosphorus Level 5.1 MG/DL (2.5-4.9) H Magnesium Level 2.3 MG/DL (1.8-2.4) Total Bilirubin 0.7 MG/DL (0.2-1.0) Aspartate Amino Transf (AST/SGOT) 28 U/L (15-37) Alanine Aminotransferase (ALT/SGPT) 18 U/L (12-78) Alkaline Phosphatase 92 U/L (46-116) Total Protein 7.2 G/DL (6.4-8.2) Albumin 3.7 G/DL (3.4-5.0) Globulin 3.5 g/dL Albumin/Globulin Ratio 1.1 (1.0-2.7) Intake and Output 09/22/18 09/23/18 18:59 06:59 Intake Total 400 ml 240 ml Balance 400 ml 240 ml Intake Oral 400 ml 240 ml # Voids 2 Objective GENERAL: Awake, responsive, not in acute distress. HEAD AND NECK: Pupils are equal and reactive to light. Extraocular movements intact. Left-sided facial area has vesicular dry rashes with the scab has been removed, not extended to the tip of the nose. Left eye, there is no erythema on the cornea. Neck was supple. No JVD. LUNGS: Good air entry. No wheeze or rales. HEART: S1, S2. Regular rhythm. No gallops. ABDOMEN: Soft, nondistended, nontender. Positive bowel sounds. EXTREMITIES: No cyanosis, clubbing, edema. NEUROLOGIC: Cranial nerves II through XII grossly intact. Motor is 5/5 in all extremities. Gait is intact. RECTAL/GENITOURINARY: Refused and deferred. PSYCHIATRIC: Mood and affect is intact. Assessment/Plan Assessment/Plan ASSESSMENT: 1. Uncontrolled diabetes, most likely secondary to the recent infection. 2. Postherpetic neuralgia. 3. Herpes zoster ophthalmicus of the left eye. PLAN: pain medication including methadone. Follow up Dr. Adams's recommendation. Resume home medication. Accu-Chek with sliding scale. Code status: Full Code. DVT prophylaxis: heparin SQ. Lyrica 100 mg po TID On Gabapentin. DC home today Chau Godfrey MD Sep 23, 2018 19:33
--- NOTE | 2018-09-24 08:41 | Discharge Summary ---
Discharge Summary Discharge Summary _ DATE OF ADMISSION: 09/18/2018 DATE OF DISCHARGE: 09/23/2018 DISCHARGED BY: Dr. Godfrey REASON FOR ADMISSION: 63 years old female with past medical history of diabetes mellitus type 2, history of recent left herpes zoster ophthalmicus (completed acyclovir), presented to emergency department complaining of sharp stabbing, electrical type pain on the left side of her face. Patient denied fever and chills. Patient denied loss of consciousness. Patient denied nausea and vomiting. Patient denied fall or head trauma. Patient denied seizure activity. Patient reported having herpes zoster infection in the left ophthalmic dermatoma for the past 4 weeks. Pain was getting progressively worse. CT of the head revealed no mass-effect, edema, or acute bleeding. Chest x-ray demonstrated no acute cardiopulmonary pathology. MRI of the face and orbits was negative. Laboratory work-up revealed mild leukocytosis, hemoglobin 13.3, stable hemoglobin and hematocrit. Glucose 302. Troponin negative. Urinalysis revealed +4 glucose, but no evidence of urinary tract infection. Urine toxicology screen positive for opiates. Patient admitted with severe left-sided facial pain, most likely secondary to postherpetic neuralgia. CONSULTANTS: pulmonary/critical care Dr. Adams pain specialist Dr. Montero [facility]SE: Patient admitted to medical surgical floor. P Pain management was addressed. Pain specialist followed. Pain was eventually was managed with Neurontin , Lyrica , methadone . Blood sugar was managed with sliding scale of insulin. Blood sugar stabilized. Supportive care provided. DVT prophylaxis provided. Bowel regimen instituted. Lipid panel revealed stable cholesterol and LDL , and elevated triglycerides 217. Patient was counseled on low-fat diet. Renal parameters and electrolytes were closely monitored and remained stable. Patient clinically stabilized and was ready for discharge home. FINAL DIAGNOSES: Diabetes mellitus out of control , most likely secondary to recent infection Postherpetic neuralgia Herpes zoster ophthalmicus left eye DISCHARGE MEDICATIONS: See Medication Reconciliation list. DISCHARGE INSTRUCTIONS: Patient was discharged home . Follow up with primary care provider in one week. I have been assigned to dictate discharge summary for this account. I was not involved in the patient's management. Bibi Teixeira NP Sep 24, 2018 08:41
== END 2018-09-23 15:21 | disposition home or self-care (01) | DRG 50 ==
LOC: EMR 15:50 → 4E 16:11 → EDBEDREQ 17:42
DX: B02.29 Other postherpetic nervous system involvement (principal); B02.30 Zoster ocular disease, unspecified; Z79.84 Long term (current) use of oral hypoglycemic drugs; E11.65 Type 2 diabetes mellitus with hyperglycemia
CPT/HCPCS: 36415; 70450; 70540; 71045; 80053; 80061; 80307; 81003; 82550; 82553; 82962; 83735; 84100; 84484; 85025; 93005; 96365; 96375; 96376; 99285; J1815; J2405